=== PATIENT | male | born 1950 | race Caucasian/White ===

== ENCOUNTER 2020-12-28 09:11 | Emergency (ER) | payer MEDICARE, OTHER ==
--- OUTSIDE RECORDS SUMMARY | 2020-12-28 09:16 | XMS REPORT | Continuity of Care Document ---
:1950 Author Organization [facility] t Address [address] [place] [address] Care Team Providers Name Role Phone Bonita Reyes Attending Clinician Doctor Unassigned, Name Attending Clinician Unavailable Problems This patient has no known problems. Allergies, Adverse Reactions, Alerts This patient has no known allergies or adverse reactions. Medications This patient has no known medications. Procedures This patient has no known procedures. Encounters Start End Encounter Admission Attending Care Care Encounter Source Date/Time Date/Time Type Type Clinicians Facility Department ID 2020-05-08 2020-05-08 Office WILDA Castillo [id number] 15:31:11 15:46:11 Visit [facility] [id number] Surgical [id number] Specialti [id number] [place] 2020-05-03 2020-05-03 Orders Doctor LLAMAS [id number] 00:00:00 00:00:00 Only UnassignedADELINA [id number] [place] [facility] [id number] Results This patient has no known results.
[2020-12-28] MEDS ORDERED: MORPHINE 4 MG/ML SYR ONE (10:35)
[2020-12-28] MEDS ORDERED: dexAMETHasone 10 MG/ML VIAL ONE (10:35)
--- NOTE | 2020-12-28 10:59 | RAD REPORT ---
EXAM DESCRIPTION: CTSpine Lumbar Wo Con12/28/2020 10:37 am CLINICAL HISTORY: Back pain and radiculopathy COMPARISON: None TECHNIQUE: Computed axial tomography lumbar spine was obtained with coronal and sagittal reconstruct ion. All CT scans are performed using dose optimization technique as appropriate and may include automated exposure control or mA/KV adjustment according to patient size. FINDINGS: No fracture is seen. No dislocation is noted. Disc bulge L2-3 narrows the thecal sac to 9 millimeters Disc bulge L3-4 in combination with ligamentum flavum and facet hypertrophy narrow the thecal sac a 5 .5 millimeters. Mild narrowing of the neural foramina bilaterally Disc bulge L4-5 in combination with ligamentum flavum and facet hypertrophy narrow the thecal sac to 3 millimeters. Marked narrowing of the neural foramina bilaterally. Small right lateral disc herniati on Disc bulge L5-S1 abuts the left S1 nerve root. Facet hypertrophy is present. 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
--- NOTE | 2020-12-28 11:07 | RAD REPORT ---
EXAM DESCRIPTION: CTThoracic Spine W/o Cont12/28/2020 10:37 am CLINICAL HISTORY: Back pain and radiculopathy COMPARISON: None TECHNIQUE: Computed axial tomography of thoracic spine was obtained with coronal and sagittal recons truction. All CT scans are performed using dose optimization technique as appropriate and may include automated exposure control or mA/KV adjustment according to patient size. FINDINGS: No fracture is seen. No dislocation is noted. Moderate central subligamentous disc herniation suspected T4-5 IMPRESSION: Negative for a thoracic fracture Moderate central subligamentous disc herniation suspected T4-5. If clinically indicated further evalu ation with MRI may helpful
--- NOTE | 2020-12-28 11:31 | ER ---
Nurse's Notes [facility] Name: Dakotah Shah Age: 70 yrs Sex: Male : 1950 Arrival Date: 12/28/2020 Time: 09:13 Bed 27 Private MD: Vadim Fernandes Diagnosis: Dorsalgia-chronic Presentation: 12/28 09:45 Chief complaint: Patient states: chronic mid back pain that got worse 2-3 days ago. aa5 When asked about any recent injury, pt states "I've been just working around the house". Coronavirus screen: Client denies travel out of the [place] in the last 14 days. At this time, the client does not indicate any symptoms associated with coronavirus-19. Ebola Screen: Patient negative for fever greater than or equal to 101.5 degrees Fahrenheit, and additional compatible Ebola Virus Disease symptoms. Initial Sepsis Screen: Does the patient meet any 2 criteria? No. Patient's initial sepsis screen is negative. Does the patient have a suspected source of infection? No. Patient's initial sepsis screen is negative. Risk Assessment: Do you want to hurt yourself or someone else? Patient reports no desire to harm self or others. Onset of symptoms was December 2020. 09:45 Acuity: CHRISTOPHER 4 aa5 09:45 Method Of Arrival: Ambulatory aa5 Historical: - Allergies: 09:49 No Known Allergies; aa5 - PMHx: 09:49 Gout; Hypertension; Diabetes - NIDDM; Thyroid problem; chronic back pain; seasonal aa5 allergies; - Immunization history:: Adult Immunizations unknown. - Social history:: Smoking status: Patient denies any tobacco usage or history of. Screenin:22 Abuse screen: Denies threats or abuse. Denies injuries from another. Nutritional ss screening: No deficits noted. Tuberculosis screening: No symptoms or risk factors identified. Fall Risk No fall in past 12 months (0 pts). Secondary diagnosis (15 points) impaired mobility, No IV (0 pts). Ambulatory Aid- None/Bed Rest/Nurse Assist (0 pts). Gait- Normal/Bed Rest/Wheelchair (0 pts) Mental Status- Oriented to own ability (0 pts). Assessment: 09:50 General: Appears uncomfortable, Behavior is calm, cooperative. Pain: Complains of pain aa5 in thoracic area Pain currently is 10 out of 10 on a pain scale. Quality of pain is described as sharp, shooting, Is continuous, Aggravated by increased activity, repositioning. Neuro: Level of Consciousness is awake, alert, obeys commands, Oriented to person, place, time, situation. Cardiovascular: Patient's skin is warm and dry. Respiratory: Airway is patent Respiratory effort is even, unlabored, Respiratory pattern is regular, symmetrical. GI: Abdomen is round. : No signs and/or symptoms were reported regarding the genitourinary system. EENT: No signs and/or symptoms were reported regarding the EENT system. Derm: Skin is pink, warm \\T\\ dry. Musculoskeletal: Range of motion: intact in all extremities. 12:00 Reassessment: Patient is alert, oriented x 3, equal unlabored respirations, skin aa5 warm/dry/pink. Patient states symptoms have not improved. PA notified . 13:22 Reassessment: Patient appears in no apparent distress at this time. Patient states ss feeling better. Patient states symptoms have improved. Vital Signs: 09:46 BP 133 / 89; Pulse 58; Resp 16 S; Temp 98.3(O); Pulse Ox 97% on R/A; Weight 113.4 kg aa5 (R); Height 5 ft. 9 in. (175.26 cm) (R); Pain 10/10; 12:20 BP 138 / 85; Pulse 62; Resp 18 S; Pulse Ox 98% on R/A; aa5 09:46 Body Mass Index 36.92 (113.40 kg, 175.26 cm) aa5 ED Course: 09:13 Patient arrived in ED. ag5 09:13 Vadim Fernandes MD is Private Physician. ag5 09:45 Arm band placed on. aa5 09:46 Triage completed. aa5 09:49 Meeta Doss, JAREN is Primary Nurse. aa5 09:51 Demond Singleton PA is PHCP. cp 09:51 John Majano MD is Attending Physician. cp 10:37 CT Thoracic Spine Wo Cont In Process Unspecified. EDMS 10:38 CT Lumbar Spine Wo Con In Process Unspecified. EDMS 13:22 Patient has correct armband on for positive identification. Bed in low position. Call ss light in reach. 13:22 No provider procedures requiring assistance completed. Patient did not have IV access ss during this emergency room visit. Administered Medications: 10:25 Drug: morphine 4 mg Route: IM; Site: left deltoid; iw 13:24 Follow up: Response: No adverse reaction; Pain is decreased ss 10:25 Drug: Decadron 10 mg Route: IM; Site: right deltoid; iw 13:24 Follow up: Response: No adverse reaction ss 12:20 Drug: Dilaudid 0.5 mg Route: IM; Site: right deltoid; aa5 13:24 Follow up: Response: No adverse reaction; Pain is decreased ss Outcome: 11:31 Discharge ordered by MD. cp 13:22 Discharged to home via wheelchair, with family. ss 13:22 Condition: good 13:22 Discharge instructions given to patient, Instructed on discharge instructions, follow up and referral plans. Demonstrated understanding of instructions, follow-up care, Prescriptions given X 4. 13:23 Patient left the ED. ss Signatures: Dispatcher [employer] EDYu Carter RN RN iw Meeta Doss RN RN aa5 Swathi Garcia RN RN Demond Singleton, BUDDY PA Saira Barnett ag5 Corrections: (The following items were deleted from the chart) 18:58 13:00 BP 138 / 85; Pulse 62bpm; Resp 18bpm; Spontaneous; Pulse Ox 98% RA; aa5 aa5
--- NOTE | 2020-12-28 11:31 | EDPHYS ---
Physician Documentation [facility] Name: Dakotah Shah Age: 70 yrs Sex: Male : 1950 Arrival Date: 12/28/2020 Time: 09:13 Bed 27 Private MD: Vadim Fernandes ED Physician John Majano HPI: 12/28 10:20 This 70 yrs old Male presents to ER via Ambulatory with complaints of Back cp Pain. 10:20 The patient presents with pain that is chronic, with no known mechanism of injury. The cp symptoms are located in the thoracic area and lumbar area. 10:20 Onset: The symptoms/episode began/occurred chronically, pain became worse over past 2-3 cp days. Patient denies injury. 10:20 Associated signs and symptoms: Pertinent negatives: abdominal pain, chest pain, cp constipation, fever, incontinence, numbness, tingling, urinary retention, weakness. Patient reports history of bulging disc in thoracic spine. Has been seen by Neurosurgery in the past. Patient reports surgery was not recommended. Historical: - Allergies: 09:49 No Known Allergies; aa5 - PMHx: 09:49 Gout; Hypertension; Diabetes - NIDDM; Thyroid problem; chronic back pain; seasonal aa5 allergies; - Immunization history:: Adult Immunizations unknown. - Social history:: Smoking status: Patient denies any tobacco usage or history of. ROS: 10:30 Constitutional: Negative for body aches, chills, fever, poor PO intake. cp 10:30 Cardiovascular: Negative for chest pain, edema, palpitations. cp 10:30 Respiratory: Negative for cough, shortness of breath, wheezing. 10:30 Abdomen/GI: Negative for abdominal pain, nausea, vomiting, and diarrhea, constipation, bowel incontinence. 10:30 Back: Positive for pain at rest, pain with movement, of the thoracic area and lumbar area. 10:30 : Negative for urinary symptoms, bladder incontinence, testicular pain 10:30 Neuro: Negative for altered mental status, headache, numbness, weakness. 10:30 All other systems are negative. Exam: 10:35 Constitutional: The patient appears in no acute distress, alert, awake, cp non-diaphoretic, non-toxic, well developed, well nourished, uncomfortable. 10:35 Head/Face: Normocephalic, atraumatic. cp 10:35 Eyes: Periorbital structures: appear normal, Conjunctiva: normal, no exudate, no injection, Sclera: no appreciated abnormality, Lids and lashes: appear normal, bilaterally. 10:35 ENT: External ear(s): are unremarkable, Nose: is normal, Posterior pharynx: Airway: no evidence of obstruction, patent. 10:35 Neck: C-spine: vertebral tenderness, is not appreciated, crepitus, is not appreciated, ROM/movement: is normal, is supple, without pain, no range of motions limitations. 10:35 Chest/axilla: Inspection: normal. 10:35 Cardiovascular: Rate: bradycardic, Rhythm: regular, Edema: is not appreciated. 10:35 Respiratory: the patient does not display signs of respiratory distress, Respirations: normal, no use of accessory muscles, no retractions, labored breathing, is not present, Breath sounds: are clear throughout. 10:35 Abdomen/GI: Inspection: abdomen appears normal, Palpation: abdomen is soft and non-tender, in all quadrants. 10:35 Back: pain, that is severe, of the thoracic area and lumbar area, ROM is painful, with all movement, vertebral tenderness, is appreciated at T10 and T11, Straight leg raises: of both lower extremities does not illicit pain. 10:35 Skin: no rash present. 10:35 Neuro: Motor: moves all fours, strength is normal, Sensation: is normal, Deep tendon reflexes are 2+ (normal) in the right patellar, right Achilles, left patellar and left Achilles. Vital Signs: 09:46 BP 133 / 89; Pulse 58; Resp 16 S; Temp 98.3(O); Pulse Ox 97% on R/A; Weight 113.4 kg aa5 (R); Height 5 ft. 9 in. (175.26 cm) (R); Pain 10/10; 12:20 BP 138 / 85; Pulse 62; Resp 18 S; Pulse Ox 98% on R/A; aa5 09:46 Body Mass Index 36.92 (113.40 kg, 175.26 cm) aa5 MDM: 10:02 Patient medically screened. cp 11:00 Differential diagnosis: chronic back pain, ruptured disc, Ureterolithiasis vertebral cp fracture, spinal stenosis, cauda equina. 11:30 Data reviewed: vital signs, nurses notes, radiologic studies, CT scan. 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 Response to treatment: the patient's symptoms have mildly improved after treatment, and as a result, I will discharge patient. ED course: VSS. Pain improved with meds. Will discharge to home for continued monitoring. 12/28 10:13 Order name: Urine Microscopic Only cp 12/28 12:15 Order name: Urine Dipstick--Ancillary (enter results) em1 12/28 10:13 Order name: CT Thoracic Spine Wo Cont; Complete Time: 11:15 cp 12/28 10:13 Order name: CT Lumbar Spine Wo Con; Complete Time: 11:15 cp 12/28 10:13 Order name: Urine Dipstick-Ancillary (obtain specimen); Complete Time: 12:14 cp Administered Medications: 10:25 Drug: morphine 4 mg Route: IM; Site: left deltoid; iw 13:24 Follow up: Response: No adverse reaction; Pain is decreased ss 10:25 Drug: Decadron 10 mg Route: IM; Site: right deltoid; iw 13:24 Follow up: Response: No adverse reaction ss 12:20 Drug: Dilaudid 0.5 mg Route: IM; Site: right deltoid; aa5 13:24 Follow up: Response: No adverse reaction; Pain is decreased ss Disposition: 12:00 Chart complete. cp 12/29 07:03 Co-signature as Attending Physician, John Majano MD I agree with the assessment and kdr plan of care. Disposition: 12/28/20 11:31 Discharged to Home. Impression: Dorsalgia - chronic. - Condition is Stable. - Discharge Instructions: Back Pain, Adult. - Prescriptions for Lidoderm 5 % Topical adhesive patch,medicated - apply 1 patch by TRANSDERMAL route once daily; 1 box. Cyclobenzaprine 10 mg Oral Tablet - take 1 tablet by ORAL route every 8 hours As needed; 20 tablet. Tramadol 50 mg Oral Tablet - take 1 tablet by ORAL route every 8 hours as needed; 12 tablet. Medrol (Gregorio) 4 mg Oral Tablets, Dose Pack - take 1 tablet by ORAL route as directed - follow package instructions; 1 packet. - Medication Reconciliation Form, Thank You Letter, Antibiotic Education, Prescription Opioid Use form. - Follow up: Private Physician; When: 1 - 2 days; Reason: Recheck today's complaints. - Problem is an acute exacerbation. - Symptoms have improved. Signatures: Dispatcher [employer] EDMS John Majano MD MD [facility] Yu Milton RN RN Meeta Doss RN RN aa5 Swathi Garcia RN RN ss Demond Singleton PA PA cp Corrections: (The following items were deleted from the chart) 12/28 13:23 11:31 12/28/2020 11:31 Discharged to Home. Impression: Dorsalgia - chronic. Condition ss is Stable. Forms are Medication Reconciliation Form, Thank You Letter, Antibiotic Education, Prescription Opioid Use. Follow up: Private Physician; When: 1 - 2 days; Reason: Recheck today's complaints. Problem is an acute exacerbation. Symptoms have improved. cp
[2020-12-28 12:26] LABS: Urine Blood NEGATIVE (NEG); Urine Glucose NEGATIVE (NEG); Urine Protein NEGATIVE (NEG); Urine Specific Gravity 1.025 (1.005-1.030); Urine pH 5.5 (5.0-7.0)
[2020-12-28 12:33] LABS: Urine Bacteria <20 /HPF (NONE SEEN); Urine RBC <5 /HPF (NONE SEEN)
[2020-12-28] MEDS ORDERED: HYDROMORPHONE HCL 0.5 MG/0.5 ML INJ ONE (12:40)
[2020-12-28 13:47] VITALS: BP 133/89; TEMP 98.3; O2SAT 97
== END 2020-12-28 13:23 | disposition home or self-care (01) ==
LOC: ER 09:11
DX: M54.6 Pain in thoracic spine (principal); M54.5 Low back pain; G89.29 Other chronic pain; M10.9 Gout, unspecified; I10 Essential (primary) hypertension; E11.9 Type 2 diabetes mellitus without complications
CPT/HCPCS: 72131; 72128; 96372; 99283; J1100; J1170; 81003; 81015

== ENCOUNTER 2021-10-15 14:42 | Emergency (ER) | payer OTHER ==
--- OUTSIDE RECORDS SUMMARY | 2021-10-15 14:48 | XMS REPORT | Continuity of Care Document ---
:1950 Author Organization [facility] t Address [address] [place] [address] Care Team Providers Name Role Phone Jonathan LOUISE S Attending Clinician Bonita CASTILLO Attending Clinician Unavailable Aileen HERNANDEZ Attending Clinician Unavailable Doctor Unassigned, Name Attending Clinician Unavailable Danni WEBER, L Attending Clinician Station, Heart Attending Clinician Unavailable 1, Lab Attending Clinician Unavailable Payers Payer Name Policy Type Policy Number Effective Date Expiration Date Bonita HAND PLS [id number] 2020 00:00:00 [facility] [id number] 2015 00:00:00 Problems Condition Condition Condition Status Onset Resolution Last Treating Co mments Source Name Details Category Date Date Treatment Clinician Date Total knee Total knee Disease Active U nivers replacemen replacemen 08-30 it y of t status t status 00:00: [place] [facility] Atrial Atrial Disease Active Univers fibrillati fibrillati 08-30 it y of on on 00:: [place] [facility] Hypertensi Hypertensi Disease Active U nivers on on 08-30 ity of 00:00: [address] 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 Added automatic ally from request for surgery [id number] Right knee Right knee Disease Active U nivers pain pain 3-16 ity of 00:00: [place] 00 Medical Branch Left hip Left hip Disease Active Unive rs pain pain 2-18 ity of 00:00: [place] [facility] Right Right Disease Active 2014-12 Univers shoulder shoulder 1-25 ity of pain pain 00:00: [place] [facility] Allergies, Adverse Reactions, Alerts Allergy Allergy Status Severity Reaction(s) Onset Inactive Treating Comm ents Source Name Type Date Date Clinician NO KNOWN Drug Active Univers ALLERGIE Class ity of S [facility] Social History Social Habit Start Date Stop Date Quantity Comments Source Exposure to Not sure [facility] SARS-CoV-2 [facility] (event) Branch Alcohol intake 2021-04-09 2021-04-09 Current [facility] 00:00:00 00:00:00 non-drinker of [facility] alcohol Branch (finding) Tobacco use and 2021-04-09 2021-04-09 Never used Universit y of exposure 00:00:00 00:00:00 [facility] Sex Ass[birth year] Universit y of 00:00:00 00:00:00 [facility] Smoking Status Start Date Stop Date Source Never smoker [facility] Medications Ordered Filled Start Stop Current Ordering Indication Dosage Frequency Signature Comments Components Source Medication Medication Date Date Medication? Clinician (SIG) Name Name zolpidem Yes 12.5mg Take 12.5 [facility] [place] (AMBIEN CR) 5-10 mg by ity of 12.5 mg CR 18:32: mouth at [facility] as tablet 37 bedtime. Medical Branch allopurinol Yes 300mg Take 300 U nivers (ZYLOPRIM) 5-10 mg by ity of 300 mg 18:32: mouth [place] tablet 37 daily. Medical Branch sotalol Yes 80mg Take 80 mg Univ ers (SOTALOL 5-10 by mouth ity of AF) 80 mg 18:32: daily. [place] tablet 37 Medical Branch gabapentin Yes 800mg Take 800 [facility] [place] (NEURONTIN) 5-10 mg by ity of 800 mg 18:32: mouth 4 [place] tablet 37 (four) Medical times Branch daily. aspirin 81 Yes 81mg Take 81 mg U nivers mg EC 5-10 by mouth ity of tablet 18:32: daily. [address] Branch Liraglutide Yes 1.2mg inject 1.2 Univers (VICTOZA 5-10 mg under ity of 2-AYALA) 0.6 18:32: the skin [place] mg/0.1 mL 37 daily. Medical (18 mg/3 Branch mL) PnIj multivitami Yes 1{tbl} Take 1 [place] n, 5-10 tablet by ity of tx-minerals 18:32: mouth [place] (COMPLETE 37 daily. Medical MULTIVITAMI Branch N) tablet tacrine HCl Yes 1{tbl} Take 1 [facility] [place] (COGNEX 5-10 tablet by ity of ORAL) 18:32: mouth [place] 37 daily. Medical Branch zolpidem Yes 12.5mg Take 12.5 [facility] [place] (AMBIEN CR) 5-10 mg by ity of 12.5 mg CR 18:32: mouth at [place] tablet 37 bedtime. Medical Branch allopurinol Yes 300mg Take 300 U nivers (ZYLOPRIM) 5-10 mg by ity of 300 mg 18:32: mouth [place] tablet 37 daily. Medical Branch sotalol Yes 80mg Take 80 mg Univ ers (SOTALOL 5-10 by mouth ity of AF) 80 mg 18:32: daily. [facility] 37 Medical Branch gabapentin Yes 800mg Take 800 [facility] [place] (NEURONTIN) 5-10 mg by ity of 800 mg 18:32: mouth 4 [place] tablet 37 (four) Medical times Branch daily. aspirin 81 Yes 81mg Take 81 mg U nivers mg EC 5-10 by mouth ity of tablet 18:32: daily. [address] Branch Liraglutide Yes 1.2mg inject 1.2 Univers (VICTOZA 5-10 mg under ity of 2-AYALA) 0.6 18:32: the skin [place] mg/0.1 mL 37 daily. Medical (18 mg/3 Branch mL) PnIj multivitami Yes 1{tbl} Take 1 [place] n, 5-10 tablet by ity of tx-minerals 18:32: mouth [place] (COMPLETE 37 daily. Medical MULTIVITAMI Branch N) tablet tacrine HCl Yes 1{tbl} Take 1 [facility] [place] (COGNEX 5-10 tablet by ity of ORAL) 18:32: mouth [place] 37 daily. Medical Branch zolpidem Yes 12.5mg Take 12.5 [facility] [place] (AMBIEN CR) 5-10 mg by ity of 12.5 mg CR 18:32: mouth at [place] tablet 37 bedtime. Medical Branch allopurinol Yes 300mg Take 300 U nivers (ZYLOPRIM) 5-10 mg by ity of 300 mg 18:32: mouth [place] tablet 37 daily. Medical Branch sotalol Yes 80mg Take 80 mg Univ ers (SOTALOL 5-10 by mouth ity of AF) 80 mg 18:32: daily. [place] tablet 37 Medical Branch gabapentin Yes 800mg Take 800 [facility] [place] (NEURONTIN) 5-10 mg by ity of 800 mg 18:32: mouth 4 [place] tablet 37 (four) Medical times Branch daily. aspirin 81 Yes 81mg Take 81 mg U nivers mg EC 5-10 by mouth ity of tablet 18:32: daily. [place] 37 Medical Branch Liraglutide Yes 1.2mg inject 1.2 Univers (VICTOZA 5-10 mg under ity of 2-AYALA) 0.6 18:32: the skin [place] as mg/0.1 mL 37 daily. Medical (18 mg/3 Branch mL) PnIj multivitami Yes 1{tbl} Take 1 [place] n, 5-10 tablet by ity of tx-minerals 18:32: mouth [place] (COMPLETE 37 daily. Medical MULTIVITAMI Branch N) tablet tacrine HCl Yes 1{tbl} Take 1 [facility] [place] (COGNEX 5-10 tablet by ity of ORAL) 18:32: mouth [place] 37 daily. Medical Branch zolpidem Yes 12.5mg Take 12.5 [facility] [place] (AMBIEN CR) 5-10 mg by ity of 12.5 mg CR 18:32: mouth at [place] tablet 37 bedtime. Medical Branch allopurinol Yes 300mg Take 300 U nivers (ZYLOPRIM) 5-10 mg by ity of 300 mg 18:32: mouth [place] tablet 37 daily. Medical Branch sotalol Yes 80mg Take 80 mg Univ ers (SOTALOL 5-10 by mouth ity of AF) 80 mg 18:32: daily. [place] tablet 37 Medical Branch gabapentin Yes 800mg Take 800 [facility] [place] (NEURONTIN) 5-10 mg by ity of 800 mg 18:32: mouth 4 [place] tablet 37 (four) Medical times Branch daily. aspirin 81 Yes 81mg Take 81 mg U nivers mg EC 5-10 by mouth ity of tablet 18:32: daily. [place] 37 Medical Branch Liraglutide Yes 1.2mg inject 1.2 Univers (VICTOZA 5-10 mg under ity of 2-AYALA) 0.6 18:32: the skin [place] as mg/0.1 mL 37 daily. Medical (18 mg/3 Branch mL) PnIj multivitami Yes 1{tbl} Take 1 [place] n, 5-10 tablet by ity of tx-minerals 18:32: mouth [place] (COMPLETE 37 daily. Medical MULTIVITAMI Branch N) tablet tacrine HCl Yes 1{tbl} Take 1 [facility] [place] (COGNEX 5-10 tablet by ity of ORAL) 18:32: mouth [place] 37 daily. Medical Branch methylPREDN 2020-0 Yes [id number] 84mg Take 21 Univers ISolone 6-08 9102 tablets by ity of (MEDROL, 00:00: mouth [place] AYALA,) 4 mg 00 SEE-INSTRU Med ical tablets CTIONS. Branch follow package directions methylPREDN 2020-0 Yes [id number] 84mg Take 21 Univers ISolone 6-08 9102 tablets by ity of (MEDROL, 00:00: mouth [place] AYALA,) 4 mg 00 SEE-INSTRU Med ical tablets CTIONS. Branch follow package directions methylPREDN 2020-0 Yes [id number] 84mg Take 21 Univers ISolone 6-08 9102 tablets by ity of (MEDROL, 00:00: mouth [place] AYALA,) 4 mg 00 SEE-INSTRU Med ical tablets CTIONS. Branch follow package directions methylPREDN 2020-0 Yes [id number] 84mg Take 21 Univers ISolone 6-08 9102 tablets by ity of (MEDROL, 00:00: mouth [place] AYALA,) 4 mg 00 SEE-INSTRU Med ical tablets CTIONS. Branch follow package directions methylPREDN 2020-0 Yes [id number] 84mg Take 21 Univers ISolone 6-08 9102 tablets by ity of (MEDROL, 00:00: mouth [place] AYALA,) 4 mg 00 SEE-INSTRU Med ical tablets CTIONS. Branch follow package directions methylPREDN 2020-0 Yes [id number] 84mg Take 21 Univers ISolone 6-08 9102 tablets by ity of (MEDROL, 00:00: mouth [place] AYALA,) 4 mg 00 SEE-INSTRU Med ical tablets CTIONS. Branch follow package directions diclofenac 2020-0 2020- No [id number] 75mg Take 1 Univers 75 mg EC -07 07- 9102 tablet by ity o f tablet 00:00: 04:59 mouth 2 [place] 00 :00 (two) Medical times Branch daily with meals for 30 days. diclofenac 2020-0 2020- No [id number] 75mg Take 1 Univers 75 mg EC 05-08- 9102 tablet by ity o f tablet 00:00: 04:59 mouth 2 [place] 00 :00 (two) Medical times Branch daily with meals for 30 days. methylPREDN 2020-0 Yes [id number] 84mg Take 21 Univers ISolone 1-07 05 tablets by ity of (MEDROL, 00:00: mouth [place] AYALA,) 4 mg 00 SEE-INSTRU Med ical tablets CTIONS. Branch follow package directions methylPREDN 2020-0 Yes [id number] 84mg Take 21 Univers ISolone 1-07 05 tablets by ity of (MEDROL, 00:00: mouth [place] AYALA,) 4 mg 00 SEE-INSTRU Med ical tablets CTIONS. Branch follow package directions methylPREDN 2020-0 Yes [id number] 84mg Take 21 Univers ISolone 1-07 05 tablets by ity of (MEDROL, 00:00: mouth [place] AYALA,) 4 mg 00 SEE-INSTRU Med ical tablets CTIONS. Branch follow package directions methylPREDN 2020-0 Yes [id number] 84mg Take 21 Univers ISolone 1-07 05 tablets by ity of (MEDROL, 00:00: mouth [place] AYALA,) 4 mg 00 SEE-INSTRU Med ical tablets CTIONS. Branch follow package directions methylPREDN 2020-0 Yes [id number] 84mg Take 21 Univers ISolone 1-07 05 tablets by ity of (MEDROL, 00:00: mouth [place] AYALA,) 4 mg 00 SEE-INSTRU Med ical tablets CTIONS. Branch follow package directions methylPREDN 2020-0 Yes [id number] 84mg Take 21 Univers ISolone 1-07 05 tablets by ity of (MEDROL, 00:00: mouth [place] AYALA,) 4 mg 00 SEE-INSTRU Med ical tablets CTIONS. Branch follow package directions methylPREDN 2020-0 Yes [id number] 84mg Take 21 Univers ISolone 1-07 05 tablets by ity of (MEDROL, 00:00: mouth [place] AYALA,) 4 mg 00 SEE-INSTRU Med ical tablets CTIONS. Branch follow package directions methylPREDN 2020-0 Yes [id number] 84mg Take 21 Univers ISolone 1-07 05 tablets by ity of (MEDROL, 00:00: mouth [place] AYALA,) 4 mg 00 SEE-INSTRU Med ical tablets CTIONS. Branch follow package directions methylPREDN 2020-0 Yes [id number] 84mg Take 21 Univers ISolone 1-07 05 tablets by ity of (MEDROL, 00:00: mouth [place] AYALA,) 4 mg 00 SEE-INSTRU Med ical tablets CTIONS. Branch follow package directions methylPREDN 2020-0 Yes [id number] 84mg Take 21 Univers ISolone 1-07 05 tablets by ity of (MEDROL, 00:00: mouth [place] AYALA,) 4 mg 00 SEE-INSTRU Med ical tablets CTIONS. Branch follow package directions methylPREDN 2020-0 Yes [id number] 84mg Take 21 Univers ISolone 1-07 05 tablets by ity of (MEDROL, 00:00: mouth [place] AYALA,) 4 mg 00 SEE-INSTRU Med ical tablets CTIONS. Branch follow package directions methylPREDN 2020-0 Yes [id number] 84mg Take 21 Univers ISolone 1-07 05 tablets by ity of (MEDROL, 00:00: mouth [place] AYALA,) 4 mg 00 SEE-INSTRU Med ical tablets CTIONS. Branch follow package directions methylPREDN Yes [id number] 84mg Take 21 Univers ISolone 1-07 05 tablets by ity of (MEDROL, 00:00: mouth [place] AYALA,) 4 mg 00 SEE-INSTRU Med ical tablets CTIONS. Branch follow package directions pentazocine 2018-12 Yes [id number] 1{tbl} Take 1 Univers -naloxone 0-22 05 tablet by ity o f 50-0.5 mg 00:00: mouth [place] tablet 00 every 4 Medical (four) Branch hours as needed for Pain. pentazocine 2018-12 Yes [id number] 1{tbl} Take 1 Univers -naloxone 0-22 05 tablet by ity o f 50-0.5 mg 00:00: mouth [place] tablet 00 every 4 Medical (four) Branch hours as needed for Pain. pentazocine 2018-12 Yes [id number] 1{tbl} Take 1 Univers -naloxone 0-22 05 tablet by ity o f 50-0.5 mg 00:00: mouth [place] tablet 00 every 4 Medical (four) Branch hours as needed for Pain. pentazocine 2018-12 Yes [id number] 1{tbl} Take 1 Univers -naloxone 0-22 05 tablet by ity o f 50-0.5 mg 00:00: mouth [place] tablet 00 every 4 Medical (four) Branch hours as needed for Pain. pentazocine 2018-12 Yes [id number] 1{tbl} Take 1 Univers -naloxone 0-22 05 tablet by ity o f 50-0.5 mg 00:00: mouth [place] tablet 00 every 4 Medical (four) Branch hours as needed for Pain. pentazocine 2018-12 Yes [id number] 1{tbl} Take 1 Univers -naloxone 0-22 05 tablet by ity o f 50-0.5 mg 00:00: mouth [place] tablet 00 every 4 Medical (four) Branch hours as needed for Pain. pentazocine 2018-12 Yes [id number] 1{tbl} Take 1 Univers -naloxone 0-22 05 tablet by ity o f 50-0.5 mg 00:00: mouth [place] tablet 00 every 4 Medical (four) Branch hours as needed for Pain. pentazocine 2018-12 Yes [id number] 1{tbl} Take 1 Univers -naloxone 0-22 05 tablet by ity o f 50-0.5 mg 00:00: mouth [place] tablet 00 every 4 Medical (four) Branch hours as needed for Pain. pentazocine 2018-12 Yes [id number] 1{tbl} Take 1 Univers -naloxone 0-22 05 tablet by ity o f 50-0.5 mg 00:00: mouth [place] tablet 00 every 4 Medical (four) Branch hours as needed for Pain. pentazocine 2018-12 Yes [id number] 1{tbl} Take 1 Univers -naloxone 0-22 05 tablet by ity o f 50-0.5 mg 00:00: mouth [place] tablet 00 every 4 Medical (four) Branch hours as needed for Pain. pentazocine 2018-12 Yes [id number] 1{tbl} Take 1 Univers -naloxone 0-22 05 tablet by ity o f 50-0.5 mg 00:00: mouth [place] tablet 00 every 4 Medical (four) Branch hours as needed for Pain. pentazocine 2018-12 Yes [id number] 1{tbl} Take 1 Univers -naloxone 0-22 05 tablet by ity o f 50-0.5 mg 00:00: mouth [place] tablet 00 every 4 Medical (four) Branch hours as needed for Pain. pentazocine 2018-12 Yes [id number] 1{tbl} Take 1 Univers -naloxone 0-22 05 tablet by ity o f 50-0.5 mg 00:00: mouth [place] tablet 00 every 4 Medical (four) Branch hours as needed for Pain. pentazocine 2018-12 Yes [id number] 1{tbl} Take 1 Univers -naloxone 0-22 05 tablet by ity o f 50-0.5 mg 00:00: mouth [place] tablet 00 every 4 Medical (four) Branch hours as needed for Pain. traMADol 50 2018-12 Yes 1-2 by Univ ers mg tablet 0-14 mouth ity of 00:00: every 4-6 [place] 00 hours as Medical needed prn Branch pain traMADol 50 2018-12 Yes 1-2 by Univ ers mg tablet 0-14 mouth ity of 00:00: every 4-6 [place] 00 hours as Medical needed prn Branch pain traMADol 50 2018-12 Yes 1-2 by Univ ers mg tablet 0-14 mouth ity of 00:00: every 4-6 [place] 00 hours as Medical needed prn Branch pain traMADol 50 2018- Yes 1-2 by Univ ers mg tablet 0-14 mouth ity of 00:00: every 4-6 [place] 00 hours as Medical needed prn Branch pain traMADol 50 2018- Yes 1-2 by Univ ers mg tablet 0-14 mouth ity of 00:00: every 4-6 [place] 00 hours as Medical needed prn Branch pain traMADol 50 2018- Yes 1-2 by Univ ers mg tablet 0-14 mouth ity of 00:00: every 4-6 [place] 00 hours as Medical needed prn Branch pain traMADol 50 2018- Yes 1-2 by Univ ers mg tablet 0-14 mouth ity of 00:00: every 4-6 [place] 00 hours as Medical needed prn Branch pain traMADol 50 2018- Yes 1-2 by Univ ers mg tablet 0-14 mouth ity of 00:00: every 4-6 [place] 00 hours as Medical needed prn Branch pain traMADol 50 2018- Yes 1-2 by Univ ers mg tablet 0-14 mouth ity of 00:00: every 4-6 [place] 00 hours as Medical needed prn Branch pain traMADol 50 2018-12 Yes 1-2 by Univ ers mg tablet 0-14 mouth ity of 00:00: every 4-6 [place] 00 hours as Medical needed prn Branch pain traMADol 50 2018- Yes 1-2 by Univ ers mg tablet 0-14 mouth ity of 00:00: every 4-6 [place] 00 hours as Medical needed prn Branch pain traMADol 50 2018- Yes 1-2 by Univ ers mg tablet 0-14 mouth ity of 00:00: every 4-6 [place] 00 hours as Medical needed prn Branch pain traMADol 50 2018- Yes 1-2 by Univ ers mg tablet 0-14 mouth ity of 00:00: every 4-6 [place] 00 hours as Medical needed prn Branch pain traMADol 50 2018- Yes 1-2 by Univ ers mg tablet 0-14 mouth ity of 00:00: every 4-6 [place] 00 hours as Medical needed prn Branch pain zolpidem 2018- Yes 12.5mg Take 12.5 [facility] [place] (AMBIEN CR) 0-01 mg by ity of 12.5 mg CR 20:47: mouth at [place] as tablet 05 bedtime. Medical Branch allopurinol 2018-12 Yes 300mg Take 300 U nivers (ZYLOPRIM) 0-01 mg by ity of 300 mg 20:47: mouth [place] tablet 05 daily. Medical Branch sotalol 2018-12 Yes 80mg Take 80 mg Univ ers (SOTALOL 0-01 by mouth ity of AF) 80 mg 20:47: daily. [place] tablet 05 Medical Branch gabapentin 2018-12 Yes 800mg Take 800 [place] (NEURONTIN) 0-01 mg by ity of 800 mg 20:47: mouth 4 [place] tablet 05 (four) Medical times Branch daily. aspirin 81 2018-12 Yes 81mg Take 81 mg U nivers mg EC 0-01 by mouth ity of tablet 20:47: daily. Medical Branch Liraglutide 2018-12 Yes 1.2mg inject 1.2 Univers (VICTOZA 0-01 mg under ity of 2-AYALA) 0.6 20:47: the skin [place] as mg/0.1 mL 05 daily. Medical (18 mg/3 Branch mL) PnIj multivitami 2018-12 Yes 1{tbl} Take 1 [place] n, 0-01 tablet by ity of tx-minerals 20:47: mouth [place] (COMPLETE 05 daily. Medical MULTIVITAMI Branch N) tablet tacrine HCl 2018-12 Yes 1{tbl} Take 1 [place] (COGNEX 0-01 tablet by ity of ORAL) 20:47: mouth [place] 05 daily. Medical Branch metFORMIN 2018-12 Yes 500mg Take 500 Uni vers 500 mg 0-01 mg by ity of tablet 20:47: mouth 2 [place] 05 (two) Medical times Branch daily with meals. zolpidem 2018-12 Yes 12.5mg Take 12.5 [place] (AMBIEN CR) 0-01 mg by ity of 12.5 mg CR 20:47: mouth at [place] as tablet 05 bedtime. Medical Branch allopurinol 2018-12 Yes 300mg Take 300 U nivers (ZYLOPRIM) 0-01 mg by ity of 300 mg 20:47: mouth [place] tablet 05 daily. Medical Branch sotalol 2018-12 Yes 80mg Take 80 mg Univ ers (SOTALOL 0-01 by mouth ity of AF) 80 mg 20:47: daily. [place] tablet 05 Medical Branch gabapentin 2018-12 Yes 800mg Take 800 [place] (NEURONTIN) 0-01 mg by ity of 800 mg 20:47: mouth 4 [place] tablet 05 (four) Medical times Branch daily. aspirin 81 2018-12 Yes 81mg Take 81 mg U nivers mg EC 0-01 by mouth ity of tablet 20:47: daily. Medical Branch Liraglutide 2018-12 Yes 1.2mg inject 1.2 Univers (VICTOZA 0-01 mg under ity of 2-AYALA) 0.6 20:47: the skin [place] as mg/0.1 mL 05 daily. Medical (18 mg/3 Branch mL) PnIj multivitami 2018-12 Yes 1{tbl} Take 1 [place] n, 0-01 tablet by ity of tx-minerals 20:47: mouth [place] (COMPLETE 05 daily. Medical MULTIVITAMI Branch N) tablet tacrine HCl 2018-12 Yes 1{tbl} Take 1 [place] (COGNEX 0-01 tablet by ity of ORAL) 20:47: mouth [place] 05 daily. Medical Branch metFORMIN 2018-12 Yes 500mg Take 500 Uni vers 500 mg 0-01 mg by ity of tablet 20:47: mouth 2 05 (two) Medical times Branch daily with meals. zolpidem 2018-12 Yes 12.5mg Take 12.5 [place] (AMBIEN CR) 0-01 mg by ity of 12.5 mg CR 20:47: mouth at [place] as tablet 05 bedtime. Medical Branch allopurinol 2018-12 Yes 300mg Take 300 U nivers (ZYLOPRIM) 0-01 mg by ity of 300 mg 20:47: mouth [place] tablet 05 daily. Medical Branch sotalol 2018-12 Yes 80mg Take 80 mg Univ ers (SOTALOL 0-01 by mouth ity of AF) 80 mg 20:47: daily. [place] tablet 05 Medical Branch gabapentin 2018-12 Yes 800mg Take 800 [place] (NEURONTIN) 0-01 mg by ity of 800 mg 20:47: mouth 4 [place] tablet 05 (four) Medical times Branch daily. aspirin 81 2018-12 Yes 81mg Take 81 mg U nivers mg EC 0-01 by mouth ity of tablet 20:47: daily. Medical Branch Liraglutide 2018-12 Yes 1.2mg inject 1.2 Univers (VICTOZA 0-01 mg under ity of 2-AYALA) 0.6 20:47: the skin [place] as mg/0.1 mL 05 daily. Medical (18 mg/3 Branch mL) PnIj multivitami 2018-12 Yes 1{tbl} Take 1 [place] n, 0-01 tablet by ity of tx-minerals 20:47: mouth [place] (COMPLETE 05 daily. Medical MULTIVITAMI Branch N) tablet tacrine HCl 2018-12 Yes 1{tbl} Take 1 [place] (COGNEX 0-01 tablet by ity of ORAL) 20:47: mouth [place] 05 daily. Medical Branch metFORMIN 2018-12 Yes 500mg Take 500 Uni vers 500 mg 0-01 mg by ity of tablet 20:47: mouth 2 [place] 05 (two) Medical times Branch daily with meals. zolpidem 2018-12 Yes 12.5mg Take 12.5 [place] (AMBIEN CR) 0-01 mg by ity of 12.5 mg CR 20:47: mouth at [place] as tablet 05 bedtime. Medical Branch allopurinol 2018-12 Yes 300mg Take 300 U nivers (ZYLOPRIM) 0-01 mg by ity of 300 mg 20:47: mouth [place] tablet 05 daily. Medical Branch sotalol 2018-12 Yes 80mg Take 80 mg Univ ers (SOTALOL 0-01 by mouth ity of AF) 80 mg 20:47: daily. [place] tablet 05 Medical Branch gabapentin 2018-12 Yes 800mg Take 800 [place] (NEURONTIN) 0-01 mg by ity of 800 mg 20:47: mouth 4 [place] tablet 05 (four) Medical times Branch daily. aspirin 81 2018-12 Yes 81mg Take 81 mg U nivers mg EC 0-01 by mouth ity of tablet 20:47: daily. [place] 05 Medical Branch Liraglutide 2018-12 Yes 1.2mg inject 1.2 Univers (VICTOZA 0-01 mg under ity of 2-AYALA) 0.6 20:47: the skin [place] mg/0.1 mL 05 daily. Medical (18 mg/3 Branch mL) PnIj multivitami 2018-12 Yes 1{tbl} Take 1 [place] n, 0-01 tablet by ity of tx-minerals 20:47: mouth [place] (COMPLETE 05 daily. Medical MULTIVITAMI Branch N) tablet tacrine HCl 2018-12 Yes 1{tbl} Take 1 [place] (COGNEX 0-01 tablet by ity of ORAL) 20:47: mouth [place] 05 daily. Medical Branch metFORMIN 2018-12 Yes 500mg Take 500 Uni vers 500 mg 0-01 mg by ity of tablet 20:47: mouth 2 [place] 05 (two) Medical times Branch daily with meals. zolpidem 2018-12 Yes 12.5mg Take 12.5 [place] (AMBIEN CR) 0-01 mg by ity of 12.5 mg CR 20:47: mouth at [place] tablet 05 bedtime. Medical Branch allopurinol 2018-12 Yes 300mg Take 300 U nivers (ZYLOPRIM) 0-01 mg by ity of 300 mg 20:47: mouth [place] tablet 05 daily. Medical Branch sotalol 2018-12 Yes 80mg Take 80 mg Univ ers (SOTALOL 0-01 by mouth ity of AF) 80 mg 20:47: daily. [place] tablet 05 Medical Branch gabapentin 2018-12 Yes 800mg Take 800 [place] (NEURONTIN) 0-01 mg by ity of 800 mg 20:47: mouth 4 [place] tablet 05 (four) Medical times Branch daily. aspirin 81 2018-12 Yes 81mg Take 81 mg U nivers mg EC 0-01 by mouth ity of tablet 20:47: daily. Medical Branch Liraglutide 2018-12 Yes 1.2mg inject 1.2 Univers (VICTOZA 0-01 mg under ity of 2-AYALA) 0.6 20:47: the skin [place] mg/0.1 mL 05 daily. Medical (18 mg/3 Branch mL) PnIj multivitami 2018-12 Yes 1{tbl} Take 1 [place] n, 0-01 tablet by ity of tx-minerals 20:47: mouth [place] (COMPLETE 05 daily. Medical MULTIVITAMI Branch N) tablet tacrine HCl 2018-12 Yes 1{tbl} Take 1 [place] (COGNEX 0-01 tablet by ity of ORAL) 20:47: mouth [place] 05 daily. Medical Branch metFORMIN 2018-12 Yes 500mg Take 500 Uni vers 500 mg 0-01 mg by ity of tablet 20:47: mouth 2 [place] 05 (two) Medical times Branch daily with meals. zolpidem 2018-12 Yes 12.5mg Take 12.5 [place] (AMBIEN CR) 0-01 mg by ity of 12.5 mg CR 20:47: mouth at [place] tablet 05 bedtime. Medical Branch allopurinol 2018-12 Yes 300mg Take 300 U nivers (ZYLOPRIM) 0-01 mg by ity of 300 mg 20:47: mouth [place] tablet 05 daily. Medical Branch sotalol 2018-12 Yes 80mg Take 80 mg Univ ers (SOTALOL 0-01 by mouth ity of AF) 80 mg 20:47: daily. [place] tablet 05 Medical Branch gabapentin 2018-12 Yes 800mg Take 800 [place] (NEURONTIN) 0-01 mg by ity of 800 mg 20:47: mouth 4 [place] tablet 05 (four) Medical times Branch daily. aspirin 81 2018-12 Yes 81mg Take 81 mg U nivers mg EC 0-01 by mouth ity of tablet 20:47: daily. 05 Medical Branch Liraglutide 2018-12 Yes 1.2mg inject 1.2 Univers (VICTOZA 0-01 mg under ity of 2-AYALA) 0.6 20:47: the skin [place] mg/0.1 mL 05 daily. Medical (18 mg/3 Branch mL) PnIj multivitami 2018-12 Yes 1{tbl} Take 1 [place] n, 0-01 tablet by ity of tx-minerals 20:47: mouth [place] (COMPLETE 05 daily. Medical MULTIVITAMI Branch N) tablet tacrine HCl 2018-12 Yes 1{tbl} Take 1 [place] (COGNEX 0-01 tablet by ity of ORAL) 20:47: mouth [place] 05 daily. Medical Branch metFORMIN 2018-12 Yes 500mg Take 500 Uni vers 500 mg 0-01 mg by ity of tablet 20:47: mouth 2 [place] 05 (two) Medical times Branch daily with meals. zolpidem 2018-12 Yes 12.5mg Take 12.5 [place] (AMBIEN CR) 0-01 mg by ity of 12.5 mg CR 20:47: mouth at [place] tablet 05 bedtime. Medical Branch allopurinol 2018-12 Yes 300mg Take 300 U nivers (ZYLOPRIM) 0-01 mg by ity of 300 mg 20:47: mouth [place] tablet 05 daily. [facility] sotalol 2018-12 Yes 80mg Take 80 mg [facility] (SOTALOL 0-01 by mouth ity of AF) 80 mg 20:47: daily. [place] tablet 05 Medical Branch gabapentin 2018-12 Yes 800mg Take 800 [facility] (NEURONTIN) 0-01 mg by ity of 800 mg 20:47: mouth 4 [place] tablet 05 (four) Medical times Branch daily. aspirin 81 2018-12 Yes 81mg Take 81 mg [facility] mg EC 0-01 by mouth ity of tablet 20:47: daily. Medical Branch Liraglutide 2018-12 Yes 1.2mg inject 1.2 [facility] (VICTOZA 0-01 mg under ity of 2-AYALA) 0.6 20:47: the [place] mg/0.1 mL 05 daily. Medical (18 mg/3 Branch mL) PnIj multivitami 2018-12 Yes 1{tbl} Take 1 [facility] n, 0-01 tablet by ity of [place]-minerals 20:47: mouth [place] (COMPLETE 05 daily. Medical MULTIVITAMI Branch N) tablet tacrine HCl 2018-12 Yes 1{tbl} Take 1 [facility] (COGNEX 0-01 tablet by ity of ORAL) 20:47: mouth [place] 05 daily. Medical Branch metFORMIN 2018-12 Yes 500mg Take 500 [facility] vers 500 mg 0-01 mg by ity of tablet 20:47: mouth 2 [place] 05 (two) Medical times Branch daily with meals. zolpidem 2018-12 Yes 12.5mg Take 12.5 [facility] (AMBIEN CR) 0-01 mg by ity of 12.5 mg CR 20:47: mouth at [place] tablet 05 bedtime. [facility] allopurinol 2018-12 Yes 300mg Take 300 [facility] (ZYLOPRIM) 0-01 mg by ity of 300 mg 20:47: mouth [place] tablet 05 daily. Medical [facility] sotalol 2018-12 Yes 80mg Take 80 mg [facility] (SOTALOL 0-01 by mouth ity of AF) 80 mg 20:47: daily. [place] tablet 05 Medical [facility] gabapentin 2018-12 Yes 800mg Take 800 [facility] [place] (NEURONTIN) 0-01 mg by ity of 800 mg 20:47: mouth 4 [place] tablet 05 (four) Medical times Branch daily. aspirin 81 2018-12 Yes 81mg Take 81 mg [facility] mg EC 0-01 by mouth ity of tablet 20:47: daily. Medical [facility] Liraglutide 2018-12 Yes 1.2mg inject 1.2 [facility] (VICTOZA 0-01 mg under ity of 2-AYALA) 0.6 20:47: the skin [place] mg/0.1 mL 05 daily. Medical (18 mg/3 Branch mL) PnIj multivitami 2018-12 Yes 1{tbl} Take 1 [facility] [place] n, 0-01 tablet by ity of [place]-minerals 20:47: mouth [place] (COMPLETE 05 daily. Medical MULTIVITAMI Branch N) tablet tacrine HCl 2018-12 Yes 1{tbl} Take 1 [facility] (COGNEX 0-01 tablet by ity of ORAL) 20:47: mouth [place] 05 daily. Medical Branch metFORMIN 2018-12 Yes 500mg Take 500 [facility] vers 500 mg 0-01 mg by ity of tablet 20:47: mouth 2 [place] 05 (two) Medical times Branch daily with meals. zolpidem 2018-12 Yes 12.5mg Take 12.5 [facility] [place] (AMBIEN CR) 0-01 mg by ity of 12.5 mg CR 20:47: mouth at [place] tablet 05 bedtime. [facility] allopurinol 2018-12 Yes 300mg Take 300 [facility] (ZYLOPRIM) 0-01 mg by ity of 300 mg 20:47: mouth [place] tablet 05 daily. Medical [facility] sotalol 2018-12 Yes 80mg Take 80 mg [facility] (SOTALOL 0-01 by mouth ity of AF) 80 mg 20:47: daily. [place] tablet 05 Medical [facility] gabapentin 2018-12 Yes 800mg Take 800 [facility] [place] (NEURONTIN) 0-01 mg by ity of 800 mg 20:47: mouth 4 [place] tablet 05 (four) Medical times Branch daily. aspirin 81 2018-12 Yes 81mg Take 81 mg [facility] mg EC 0-01 by mouth ity of tablet 20:47: daily. [place] 05 Medical Branch Liraglutide 2018-12 Yes 1.2mg inject 1.2 [facility] (VICTOZA 0-01 mg under ity of 2-AYALA) 0.6 20:47: the [place] mg/0.1 mL 05 daily. Medical (18 mg/3 Branch mL) PnIj multivitami 2018-12 Yes 1{tbl} Take 1 [facility] [place] n, 0-01 tablet by ity of [place]-minerals 20:47: mouth [place] (COMPLETE 05 daily. Medical MULTIVITAMI Branch N) tablet tacrine HCl 2018-12 Yes 1{tbl} Take 1 [facility] [place] (COGNEX 0-01 tablet by ity of ORAL) 20:47: mouth [place] 05 daily. Medical Branch metFORMIN 2018-12 Yes 500mg Take 500 [facility] vers 500 mg 0-01 mg by ity of tablet 20:47: mouth 2 [place] 05 (two) Medical times Branch daily with meals. zolpidem 2018-12 Yes 12.5mg Take 12.5 [facility] [place] (AMBIEN CR) 0-01 mg by ity of 12.5 mg CR 20:47: mouth at [place] tablet 05 bedtime. [facility] allopurinol 2018-12 Yes 300mg Take 300 [facility] (ZYLOPRIM) 0-01 mg by ity of 300 mg 20:47: mouth [place] tablet 05 daily. Medical Branch sotalol 2018-12 Yes 80mg Take 80 mg [facility] (SOTALOL 0-01 by mouth ity of AF) 80 mg 20:47: daily. [place] tablet 05 Medical Branch gabapentin 2018-12 Yes 800mg Take 800 [facility] [place] (NEURONTIN) 0-01 mg by ity of 800 mg 20:47: mouth 4 [place] tablet 05 (four) Medical times Branch daily. aspirin 81 2018-12 Yes 81mg Take 81 mg [facility] mg EC 0-01 by mouth ity of tablet 20:47: daily. [place] 05 Medical Branch Liraglutide 2018-12 Yes 1.2mg inject 1.2 [facility] (VICTOZA 0-01 mg under ity of 2-AYALA) 0.6 20:47: the skin [place] mg/0.1 mL 05 daily. Medical (18 mg/3 Branch mL) PnIj multivitami 2018-12 Yes 1{tbl} Take 1 [facility] [place] n, 0-01 tablet by ity of [place]-minerals 20:47: mouth [place] (COMPLETE 05 daily. Medical MULTIVITAMI Branch N) tablet tacrine HCl 2018-12 Yes 1{tbl} Take 1 [facility] [place] (COGNEX 0-01 tablet by ity of ORAL) 20:47: mouth [place] 05 daily. Medical Branch metFORMIN 2018-12 Yes 500mg Take 500 [facility] vers 500 mg 0-01 mg by ity of tablet 20:47: mouth 2 [place] 05 (two) Medical times Branch daily with meals. metFORMIN 2018-12 Yes 500mg Take 500 [facility] vers 500 mg 0-01 mg by ity of tablet 20:47: mouth 2 [place] 05 (two) Medical times Branch daily with meals. metFORMIN 2018-12 Yes 500mg Take 500 [facility] vers 500 mg 0-01 mg by ity of tablet 20:47: mouth 2 [place] 05 (two) Medical times Branch daily with meals. metFORMIN 2018-12 Yes 500mg Take 500 [facility] vers 500 mg 0-01 mg by ity of tablet 20:47: mouth 2 [place] 05 (two) Medical times Branch daily with meals. metFORMIN 2018-12 Yes 500mg Take 500 [facility] vers 500 mg 0-01 mg by ity of tablet 20:47: mouth 2 [place] 05 (two) Medical times Branch daily with meals. acetaminoph 2018-12 Yes [id number] 1{tbl} Take 1 [facility] en-codeine 0-01 05 tablet by ity of (TYLENOL-CO 00:00: mouth [place] DEINE #3) 00 every 4 Medical 300-30 mg (four) Branch tablet hours as needed for Pain (scale 4-6) or Pain (scale 7-10). acetaminoph 2018-12 Yes [id number] 1{tbl} Take 1 [facility] en-codeine 0-01 05 tablet by ity of (TYLENOL-CO 00:00: mouth [place] DEINE #3) 00 every 4 Medical 300-30 mg (four) Branch tablet hours as needed for Pain (scale 4-6) or Pain (scale 7-10). acetaminoph 2018-12 Yes [id number] 1{tbl} Take 1 [facility] en-codeine 0-01 05 tablet by ity of (TYLENOL-CO 00:00: mouth [place] DEINE #3) 00 every 4 Medical 300-30 mg (four) Branch tablet hours as needed for Pain (scale 4-6) or Pain (scale 7-10). acetaminoph 2018-12 Yes [id number] 1{tbl} Take 1 [facility] en-codeine 0-01 05 tablet by ity of (TYLENOL-CO 00:00: mouth [place] DEINE #3) 00 every 4 Medical 300-30 mg (four) Branch tablet hours as needed for Pain (scale 4-6) or Pain (scale 7-10). acetaminoph 2018-12 Yes [id number] 1{tbl} Take 1 [facility] en-codeine 0-01 05 tablet by ity of (TYLENOL-CO 00:00: mouth [place] DEINE #3) 00 every 4 Medical 300-30 mg (four) Branch tablet hours as needed for Pain (scale 4-6) or Pain (scale 7-10). acetaminoph 2018-12 Yes [id number] 1{tbl} Take 1 [facility] en-codeine 0-01 05 tablet by ity of (TYLENOL-CO 00:00: mouth [place] DEINE #3) 00 every 4 Medical 300-30 mg (four) Branch tablet hours as needed for Pain (scale 4-6) or Pain (scale 7-10). acetaminoph 2018-12 Yes [id number] 1{tbl} Take 1 [facility] en-codeine 0-01 05 tablet by ity of (TYLENOL-CO 00:00: mouth [place] DEINE #3) 00 every 4 Medical 300-30 mg (four) Branch tablet hours as needed for Pain (scale 4-6) or Pain (scale 7-10). acetaminoph 2018-12 Yes [id number] 1{tbl} Take 1 [facility] en-codeine 0-01 05 tablet by ity of (TYLENOL-CO 00:00: mouth [place] DEINE #3) 00 every 4 Medical 300-30 mg (four) Branch tablet hours as needed for Pain (scale 4-6) or Pain (scale 7-10). acetaminoph 2018-12 Yes [id number] 1{tbl} Take 1 [facility] en-codeine 0-01 05 tablet by ity of (TYLENOL-CO 00:00: mouth [place] DEINE #3) 00 every 4 Medical 300-30 mg (four) Branch tablet hours as needed for Pain (scale 4-6) or Pain (scale 7-10). acetaminoph 2018-12 Yes [id number] 1{tbl} Take 1 [facility] en-codeine 0-01 05 tablet by ity of (TYLENOL-CO 00:00: mouth [place] DEINE #3) 00 every 4 Medical 300-30 mg (four) Branch tablet hours as needed for Pain (scale 4-6) or Pain (scale 7-10). acetaminoph 2018-12 Yes [id number] 1{tbl} Take 1 [facility] en-codeine 0-01 05 tablet by ity of (TYLENOL-CO 00:00: mouth [place] DEINE #3) 00 every 4 Medical 300-30 mg (four) Branch tablet hours as needed for Pain (scale 4-6) or Pain (scale 7-10). acetaminoph 2018-12 Yes [id number] 1{tbl} Take 1 [facility] en-codeine 0-01 05 tablet by ity of (TYLENOL-CO 00:00: mouth [place] DEINE #3) 00 every 4 Medical 300-30 mg (four) Branch tablet hours as needed for Pain (scale 4-6) or Pain (scale 7-10). acetaminoph 2018-12 Yes [id number] 1{tbl} Take 1 [facility] en-codeine 0-01 05 tablet by ity of (TYLENOL-CO 00:00: mouth [place] DEINE #3) 00 every 4 Medical 300-30 mg (four) Branch tablet hours as needed for Pain (scale 4-6) or Pain (scale 7-10). acetaminoph 2018-12 Yes [id number] 1{tbl} Take 1 [facility] en-codeine 0-01 05 tablet by ity of (TYLENOL-CO 00:00: mouth [place] DEINE #3) 00 every 4 Medical 300-30 mg (four) Branch tablet hours as needed for Pain (scale 4-6) or Pain (scale 7-10). ceFAZolin 2019- No 2g [facility] in dextrose 08-30 ity of (iso-os) 05:00: 16:59 [place] (ANCEF) 2 00 :00 Medical gram/100 mL Branch Piggyback 2 g oxyCODONE-a 2019- No 2{tbl} Uni vers cetaminophe 08-30 ity of n 05:00: 16:59 [place] (PERCOCET) 00 :00 Medical 5-325 mg Branch per tablet 2 tablet clonazePAM 2019-0 Yes .5mg Take 0.5 [facility] vers 0.5 mg 8-05 mg by ity of tablet 00:00: mouth as [place] 00 needed. Medical Branch clonazePAM 2019-0 Yes .5mg Take 0.5 [facility] vers 0.5 mg 8-05 mg by ity of tablet 00:00: mouth as [place] 00 needed. Medical Branch clonazePAM 2019-0 Yes .5mg Take 0.5 [facility] vers 0.5 mg 8-05 mg by ity of tablet 00:00: mouth as [place] 00 needed. Medical Branch clonazePAM 2019-0 Yes .5mg Take 0.5 [facility] vers 0.5 mg 8-05 mg by ity of tablet 00:00: mouth as [place] 00 needed. Medical Branch clonazePAM 2019-0 Yes .5mg Take 0.5 [facility] vers 0.5 mg 8-05 mg by ity of tablet 00:00: mouth as [place] 00 needed. Medical Branch clonazePAM 2019-0 Yes .5mg Take 0.5 [facility] vers 0.5 mg 8-05 mg by ity of tablet 00:00: mouth as [place] 00 needed. Medical Branch clonazePAM 2019-0 Yes .5mg Take 0.5 [facility] vers 0.5 mg 8-05 mg by ity of tablet 00:00: mouth as [place] 00 needed. Medical Branch clonazePAM 2019-0 Yes .5mg Take 0.5 [facility] vers 0.5 mg 8-05 mg by ity of tablet 00:00: mouth as [place] 00 needed. Medical Branch clonazePAM 2019-0 Yes .5mg Take 0.5 [facility] vers 0.5 mg 8-05 mg by ity of tablet 00:00: mouth as [place] 00 needed. Medical Branch clonazePAM 2019-0 Yes .5mg Take 0.5 [facility] vers 0.5 mg 8-05 mg by ity of tablet 00:00: mouth as [place] 00 needed. Medical Branch clonazePAM 2019-0 Yes .5mg Take 0.5 [facility] vers 0.5 mg 8-05 mg by ity of tablet 00:00: mouth as [place] 00 needed. Medical Branch clonazePAM 2019-0 Yes .5mg Take 0.5 [facility] vers 0.5 mg 8-05 mg by ity of tablet 00:00: mouth as [place] 00 needed. Medical Branch clonazePAM 2019-0 Yes .5mg Take 0.5 [facility] vers 0.5 mg 8-05 mg by ity of tablet 00:00: mouth as [place] 00 needed. Medical Branch clonazePAM 2019-0 Yes .5mg Take 0.5 [facility] vers 0.5 mg 8-05 mg by ity of tablet 00:00: mouth as [place] 00 needed. Medical Branch mometasone 2019-0 Yes 1{spray Use 1 [facility] vers 50 8-01 } [place] in ity of mcg/actuati 00:00: each [place] on nasal 00 nostril as Medic al spray needed. Branch mometasone 2019-0 Yes 1{spray Use 1 [facility] vers 50 8-01 } [place] in ity of mcg/actuati 00:00: each [place] on nasal 00 nostril as Medic al spray needed. Branch mometasone Yes 1{spray Use 1 [facility] vers 50 8-01 } [place] in ity of mcg/actuati 00:00: each [place] on nasal 00 nostril as Medic al spray needed. Branch mometasone Yes 1{spray Use 1 [facility] vers 50 8-01 } [place] in ity of mcg/actuati 00:00: each [place] on nasal 00 nostril as Medic al spray needed. Branch mometasone Yes 1{spray Use 1 [facility] vers 50 8-01 } [place] in ity of mcg/actuati 00:00: each [place] on nasal 00 nostril as Medic al spray needed. Branch mometasone Yes 1{spray Use 1 [facility] vers 50 8-01 } [place] in ity of mcg/actuati 00:00: each [place] on nasal 00 nostril as Medic al spray needed. [place] mometasone Yes 1{spray Use 1 [facility] vers 50 8-01 } [place] in ity of mcg/actuati 00:00: each [place] on nasal 00 nostril as Medic al spray needed. Branch mometasone Yes 1{spray Use 1 [facility] vers 50 8-01 } [place] in ity of mcg/actuati 00:00: each [place] on nasal 00 nostril as Medic al spray needed. Branch mometasone Yes 1{spray Use 1 [facility] vers 50 8-01 } [place] in ity of mcg/actuati 00:00: each [place] on nasal 00 nostril as Medic al spray needed. Branch mometasone Yes 1{spray Use 1 [facility] vers 50 8-01 } [place] in ity of mcg/actuati 00:00: each [place] on nasal 00 nostril as Medic al spray needed. Branch mometasone Yes 1{spray Use 1 [facility] vers 50 8-01 } [place] in ity of mcg/actuati 00:00: each [place] on nasal 00 nostril as Medic al spray needed. Branch mometasone Yes 1{spray Use 1 [facility] vers 50 8-01 } [place] in ity of mcg/actuati 00:00: each [place] on nasal 00 nostril as Medic al spray needed. Branch mometasone Yes 1{spray Use 1 [facility] vers 50 8-01 } [place] in ity of mcg/actuati 00:00: each [place] on nasal 00 nostril as Medic al spray needed. Branch mometasone Yes 1{spray Use 1 [facility] vers 50 8-01 } [place] in ity of mcg/actuati 00:00: each [place] on nasal 00 nostril as Medic al spray needed. Branch zolpidem Yes 12.5mg Take 12.5 [facility] [place] (AMBIEN CR) 4-19 mg by ity of 12.5 mg CR 14:30: mouth at [place] tablet 59 bedtime. Medical Branch sotalol Yes 80mg Take 80 mg [facility] (SOTALOL 4-19 by mouth 2 ity o f AF) 80 mg 14:30: (two) [place] tablet 59 times Medical daily. Branch telmisartan Yes 1{tbl} Take 1 Tab [facility] -hydrochlor 4-19 by mouth ity of othiazide 14:30: daily. [place] (MICARDIS 59 Medical HCT) Branch 40-12.5 mg per tablet gabapentin Yes 800mg Take 800 [facility] [place] (NEURONTIN) 4-19 mg by ity of 800 mg 14:30: mouth 3 [place] tablet 59 (three) Medical times Branch daily. Liraglutide Yes 1.2mg inject 1.2 [facility] (VICTOZA 4-19 mg under ity of 2-AYALA) 0.6 14:30: the skin [place] mg/0.1 mL 59 daily. Medical (18 mg/3 Branch mL) PnIj doxepin Yes 50mg Take 50 mg [facility] (SINEQUAN) 4-19 by mouth ity o f 50 mg 14:30: daily. [place] capsule 59 Medical Branch zolpidem Yes 12.5mg Take 12.5 [place] (AMBIEN CR) 4-19 mg by ity of 12.5 mg CR 14:30: mouth at [place] tablet 59 bedtime. Medical Branch sotalol Yes 80mg Take 80 mg [facility] (SOTALOL 4-19 by mouth 2 ity o f AF) 80 mg 14:30: (two) [place] tablet 59 times Medical daily. Branch telmisartan 2019-0 Yes 1{tbl} Take 1 Tab [facility] -hydrochlor 4-19 by mouth ity of othiazide 14:30: daily. [place] (MICARDIS 59 Medical HCT) Branch 40-12.5 mg per tablet gabapentin 0 Yes 800mg Take 800 [place] (NEURONTIN) 4-19 mg by ity of 800 mg 14:30: mouth 3 [place] tablet 59 (three) Medical times Branch daily. Liraglutide 0 Yes 1.2mg inject 1.2 [facility] (VICTOZA 4-19 mg under ity of 2-AYALA) 0.6 14:30: the skin [place] mg/0.1 mL 59 daily. Medical (18 mg/3 Branch mL) PnIj doxepin 0 Yes 50mg Take 50 mg [facility] (SINEQUAN) 4-19 by mouth ity o f 50 mg 14:30: daily. [place] capsule 59 Medical Branch zolpidem 0 Yes 12.5mg Take 12.5 [facility] [place] (AMBIEN CR) 4-19 mg by ity of 12.5 mg CR 14:30: mouth at [place] tablet 59 bedtime. Medical Branch sotalol 0 Yes 80mg Take 80 mg [facility] (SOTALOL 4-19 by mouth 2 ity o f AF) 80 mg 14:30: (two) [place] tablet 59 times Medical daily. Branch telmisartan 2019-0 Yes 1{tbl} Take 1 Tab [facility] -hydrochlor 4-19 by mouth ity of othiazide 14:30: daily. [place] (MICARDIS 59 Medical HCT) Branch 40-12.5 mg per tablet gabapentin 0 Yes 800mg Take 800 [place] (NEURONTIN) 4-19 mg by ity of 800 mg 14:30: mouth 3 [place] tablet 59 (three) Medical times Branch daily. Liraglutide 2019-0 Yes 1.2mg inject 1.2 [facility] (VICTOZA 4-19 mg under ity of 2-AYALA) 0.6 14:30: the skin [place] mg/0.1 mL 59 daily. Medical (18 mg/3 Branch mL) PnIj doxepin 2018-0 Yes 50mg Take 50 mg [facility] (SINEQUAN) 4-19 by mouth ity o f 50 mg 14:30: daily. [place] capsule 59 Medical Branch zolpidem 0 Yes 12.5mg Take 12.5 [facility] [place] (AMBIEN CR) 4-19 mg by ity of 12.5 mg CR 14:30: mouth at [place] tablet 59 bedtime. Medical Branch sotalol Yes 80mg Take 80 mg [facility] (SOTALOL 4-19 by mouth 2 ity o f AF) 80 mg 14:30: (two) [place] tablet 59 times Medical daily. Branch telmisartan Yes 1{tbl} Take 1 Tab [facility] -hydrochlor 4-19 by mouth ity of othiazide 14:30: daily. [place] (MICARDIS 59 Medical HCT) Branch 40-12.5 mg per tablet gabapentin Yes 800mg Take 800 [place] (NEURONTIN) 4-19 mg by ity of 800 mg 14:30: mouth 3 [place] tablet 59 (three) Medical times Branch daily. Liraglutide Yes 1.2mg inject 1.2 [facility] (VICTOZA 4-19 mg under ity of 2-AYALA) 0.6 14:30: the skin [place] mg/0.1 mL 59 daily. Medical (18 mg/3 Branch mL) PnIj doxepin Yes 50mg Take 50 mg [facility] (SINEQUAN) 4-19 by mouth ity o f 50 mg 14:30: daily. [place] capsule 59 Medical Branch zolpidem Yes 12.5mg Take 12.5 [facility] [place] (AMBIEN CR) 4-19 mg by ity of 12.5 mg CR 14:30: mouth at [place] tablet 59 bedtime. Medical Branch sotalol Yes 80mg Take 80 mg [facility] (SOTALOL 4-19 by mouth 2 ity o f AF) 80 mg 14:30: (two) [place] tablet 59 times Medical daily. Branch telmisartan 0 Yes 1{tbl} Take 1 Tab [facility] -hydrochlor 4-19 by mouth ity of othiazide 14:30: daily. [place] (MICARDIS 59 Medical HCT) Branch 40-12.5 mg per tablet gabapentin 0 Yes 800mg Take 800 [place] (NEURONTIN) 4-19 mg by ity of 800 mg 14:30: mouth 3 [place] tablet 59 (three) Medical times Branch daily. Liraglutide 2019-0 Yes 1.2mg inject 1.2 [facility] (VICTOZA 4-19 mg under ity of 2-AYALA) 0.6 14:30: the skin [place] mg/0.1 mL 59 daily. Medical (18 mg/3 Branch mL) PnIj doxepin 2018-0 Yes 50mg Take 50 mg [facility] (SINEQUAN) 4-19 by mouth ity o f 50 mg 14:30: daily. [place] capsule 59 Medical Branch zolpidem 0 Yes 12.5mg Take 12.5 [place] (AMBIEN CR) 4-19 mg by ity of 12.5 mg CR 14:30: mouth at [place] tablet 59 bedtime. Medical Branch sotalol 0 Yes 80mg Take 80 mg [facility] (SOTALOL 4-19 by mouth 2 ity o f AF) 80 mg 14:30: (two) [place] tablet 59 times Medical daily. Branch telmisartan Yes 1{tbl} Take 1 Tab [facility] -hydrochlor 4-19 by mouth ity of othiazide 14:30: daily. [place] (MICARDIS 59 Medical HCT) Branch 40-12.5 mg per tablet gabapentin 0 Yes 800mg Take 800 [place] (NEURONTIN) 4-19 mg by ity of 800 mg 14:30: mouth 3 [place] tablet 59 (three) Medical times Branch daily. Liraglutide 0 Yes 1.2mg inject 1.2 [facility] (VICTOZA 4-19 mg under ity of 2-AYALA) 0.6 14:30: the skin [place] mg/0.1 mL 59 daily. Medical (18 mg/3 Branch mL) PnIj doxepin 2018-0 Yes 50mg Take 50 mg [facility] (SINEQUAN) 4-19 by mouth ity o f 50 mg 14:30: daily. [place] capsule 59 Medical Branch zolpidem 0 Yes 12.5mg Take 12.5 [place] (AMBIEN CR) 4-19 mg by ity of 12.5 mg CR 14:30: mouth at [place] tablet 59 bedtime. Medical Branch sotalol 0 Yes 80mg Take 80 mg [facility] (SOTALOL 4-19 by mouth 2 ity o f AF) 80 mg 14:30: (two) [place] tablet 59 times Medical daily. Branch telmisartan 2019-0 Yes 1{tbl} Take 1 Tab [facility] -hydrochlor 4-19 by mouth ity of othiazide 14:30: daily. [place] (MICARDIS 59 Medical HCT) Branch 40-12.5 mg per tablet gabapentin 0 Yes 800mg Take 800 [place] (NEURONTIN) 4-19 mg by ity of 800 mg 14:30: mouth 3 [place] tablet 59 (three) Medical times Branch daily. Liraglutide 0 Yes 1.2mg inject 1.2 [facility] (VICTOZA 4-19 mg under ity of 2-AYALA) 0.6 14:30: the skin [place] mg/0.1 mL 59 daily. Medical (18 mg/3 Branch mL) PnIj doxepin 0 Yes 50mg Take 50 mg [facility] (SINEQUAN) 4-19 by mouth ity o f 50 mg 14:30: daily. [place] capsule 59 Medical Branch zolpidem 0 Yes 12.5mg Take 12.5 [place] (AMBIEN CR) 4-19 mg by ity of 12.5 mg CR 14:30: mouth at [place] tablet 59 bedtime. Medical Branch sotalol 0 Yes 80mg Take 80 mg [facility] (SOTALOL 4-19 by mouth 2 ity o f AF) 80 mg 14:30: (two) [place] tablet 59 times Medical daily. Branch telmisartan 2019-0 Yes 1{tbl} Take 1 Tab [facility] -hydrochlor 4-19 by mouth ity of othiazide 14:30: daily. [place] (MICARDIS 59 Medical HCT) Branch 40-12.5 mg per tablet gabapentin 0 Yes 800mg Take 800 [place] (NEURONTIN) 4-19 mg by ity of 800 mg 14:30: mouth 3 [place] tablet 59 (three) Medical times Branch daily. Liraglutide 2019-0 Yes 1.2mg inject 1.2 [facility] (VICTOZA 4-19 mg under ity of 2-AYALA) 0.6 14:30: the skin [place] mg/0.1 mL 59 daily. Medical (18 mg/3 Branch mL) PnIj doxepin 2018-0 Yes 50mg Take 50 mg [facility] (SINEQUAN) 4-19 by mouth ity o f 50 mg 14:30: daily. [place] capsule 59 Medical Branch zolpidem 0 Yes 12.5mg Take 12.5 [place] (AMBIEN CR) 4-19 mg by ity of 12.5 mg CR 14:30: mouth at [place] tablet 59 bedtime. Medical Branch sotalol Yes 80mg Take 80 mg [facility] (SOTALOL 4-19 by mouth 2 ity o f AF) 80 mg 14:30: (two) [place] tablet 59 times Medical daily. Branch telmisartan Yes 1{tbl} Take 1 Tab [facility] -hydrochlor 4-19 by mouth ity of othiazide 14:30: daily. [place] (MICARDIS 59 Medical HCT) Branch 40-12.5 mg per tablet gabapentin Yes 800mg Take 800 [place] (NEURONTIN) 4-19 mg by ity of 800 mg 14:30: mouth 3 [place] tablet 59 (three) Medical times Branch daily. Liraglutide Yes 1.2mg inject 1.2 [facility] (VICTOZA 4-19 mg under ity of 2-AYALA) 0.6 14:30: the [place] mg/0.1 mL 59 daily. Medical (18 mg/3 Branch mL) PnIj doxepin Yes 50mg Take 50 mg [facility] (SINEQUAN) 4-19 by mouth ity o f 50 mg 14:30: daily. [place] capsule 59 Medical Branch zolpidem Yes 12.5mg Take 12.5 [place] (AMBIEN CR) 4-19 mg by ity of 12.5 mg CR 14:30: mouth at [place] tablet 59 bedtime. Medical Branch sotalol Yes 80mg Take 80 mg [facility] (SOTALOL 4-19 by mouth 2 ity o f AF) 80 mg 14:30: (two) [place] tablet 59 times Medical daily. Branch telmisartan 0 Yes 1{tbl} Take 1 Tab [facility] -hydrochlor 4-19 by mouth ity of othiazide 14:30: daily. [place] (MICARDIS 59 Medical HCT) Branch 40-12.5 mg per tablet gabapentin 0 Yes 800mg Take 800 [place] (NEURONTIN) 4-19 mg by ity of 800 mg 14:30: mouth 3 [place] tablet 59 (three) Medical times Branch daily. Liraglutide 2019-0 Yes 1.2mg inject 1.2 [facility] (VICTOZA 4-19 mg under ity of 2-AYALA) 0.6 14:30: the [place] mg/0.1 mL 59 daily. Medical (18 mg/3 Branch mL) PnIj doxepin 2019-0 Yes 50mg Take 50 mg [facility] (SINEQUAN) 4-19 by mouth ity o f 50 mg 14:30: daily. [place] capsule 59 Medical Branch zolpidem 2019-0 Yes 12.5mg Take 12.5 [place] (AMBIEN CR) 4-19 mg by ity of 12.5 mg CR 14:30: mouth at [place] tablet 59 bedtime. Medical Branch sotalol 0 Yes 80mg Take 80 mg [facility] (SOTALOL 4-19 by mouth 2 ity o f AF) 80 mg 14:30: (two) [place] tablet 59 times Medical daily. Branch telmisartan 0 Yes 1{tbl} Take 1 Tab [facility] -hydrochlor 4-19 by mouth ity of othiazide 14:30: daily. [place] (MICARDIS 59 Medical HCT) Branch 40-12.5 mg per tablet gabapentin 2018-0 Yes 800mg Take 800 [place] (NEURONTIN) 4-19 mg by ity of 800 mg 14:30: mouth 3 [place] tablet 59 (three) Medical times Branch daily. Liraglutide 2019-0 Yes 1.2mg inject 1.2 [facility] (VICTOZA 4-19 mg under ity of 2-AYALA) 0.6 14:30: the [place] mg/0.1 mL 59 daily. Medical (18 mg/3 Branch mL) PnIj doxepin 2019-0 Yes 50mg Take 50 mg [facility] (SINEQUAN) 4-19 by mouth ity o f 50 mg 14:30: daily. [place] capsule 59 Medical Branch allopurinol 2019-0 Yes 300mg Take 300 [facility] n[facility] (ZYLOPRIM) 4-19 mg by ity of 300 mg 14:29: mouth [place] tablet 46 daily. Medical Branch aspirin 81 2019-0 Yes 81mg Take 81 mg [facility] n[facility] mg EC 4-19 by mouth ity of tablet 14:29: daily. [place] 46 Medical Branch allopurinol 2019-0 Yes 300mg Take 300 [facility] n[facility] (ZYLOPRIM) 4-19 mg by ity of 300 mg 14:29: mouth [place] tablet 46 daily. Medical Branch aspirin 81 2019-0 Yes 81mg Take 81 mg [facility] n[facility] mg EC 4-19 by mouth ity of tablet 14:29: daily. [place] [address] Medical Branch allopurinol 2019-0 Yes 300mg Take 300 [facility] n[facility] (ZYLOPRIM) 4-19 mg by ity of 300 mg 14:29: mouth [place] tablet 46 daily. Medical Branch aspirin 81 2019-0 Yes 81mg Take 81 mg [facility] n[facility] mg EC 4-19 by mouth ity of tablet 14:29: daily. [place] [address] Medical Branch allopurinol 2019-0 Yes 300mg Take 300 [facility] (ZYLOPRIM) 4-19 mg by ity of 300 mg 14:29: mouth [place] tablet 46 daily. Medical Branch aspirin 81 2018-0 Yes 81mg Take 81 mg [facility] n[facility] mg EC 4-19 by mouth ity of tablet 14:29: daily. [place] [address] Medical Branch allopurinol 2019-0 Yes 300mg Take 300 U n[facility] (ZYLOPRIM) 4-19 mg by ity of 300 mg 14:29: mouth [place] tablet 46 daily. Medical Branch aspirin 81 2018-0 Yes 81mg Take 81 mg U nivers mg EC 4-19 by mouth ity of tablet 14:29: daily. [place] [address] [facility] Branch allopurinol 2019-0 Yes 300mg Take 300 U nivers (ZYLOPRIM) 4-19 mg by ity of 300 mg 14:29: mouth [place] tablet 46 daily. Medical Branch aspirin 81 2019-0 Yes 81mg Take 81 mg U nivers mg EC 4-19 by mouth ity of tablet 14:29: daily. [place] [address] [facility] Branch allopurinol 2019-0 Yes 300mg Take 300 U nivers (ZYLOPRIM) 4-19 mg by ity of 300 mg 14:29: mouth [place] tablet 46 daily. Medical Branch aspirin 81 2019-0 Yes 81mg Take 81 mg U nivers mg EC 4-19 by mouth ity of tablet 14:29: daily. [place] [address] [facility] Branch allopurinol 2019-0 Yes 300mg Take 300 U nivers (ZYLOPRIM) 4-19 mg by ity of 300 mg 14:29: mouth [place] tablet 46 daily. Medical Branch aspirin 81 2019-0 Yes 81mg Take 81 mg U nivers mg EC 4-19 by mouth ity of tablet 14:29: daily. [address] Branch allopurinol 0 Yes 300mg Take 300 U nivers (ZYLOPRIM) 4-19 mg by ity of 300 mg 14:29: mouth [place] tablet 46 daily. Medical Branch aspirin 81 0 Yes 81mg Take 81 mg U nivers mg EC 4-19 by mouth ity of tablet 14:29: daily. [address] Branch allopurinol 0 Yes 300mg Take 300 U nivers (ZYLOPRIM) 4-19 mg by ity of 300 mg 14:29: mouth [place] tablet 46 daily. [facility] Branch aspirin 81 Yes 81mg Take 81 mg U nivers mg EC 4-19 by mouth ity of tablet 14:29: daily. [address] allopurinol Yes 300mg Take 300 U nivers (ZYLOPRIM) 4-19 mg by ity of 300 mg 14:29: mouth [place] tablet 46 daily. [facility] Branch aspirin 81 Yes 81mg Take 81 mg U nivers mg EC 4-19 by mouth ity of tablet 14:29: daily. [address] telmisartan 0 Yes Univer s 40 mg 4-11 ity of tablet 00:00: [address] Branch telmisartan 2018-0 Yes Univer s 40 mg 4-11 ity of tablet 00:00: [address] Branch telmisartan 2018-0 Yes Univer s 40 mg 4-11 ity of tablet 00:00: [place] [address] Medical Branch telmisartan 2019-0 Yes Univer s 40 mg 4-11 ity of tablet 00:00: [address] Branch telmisartan 2019-0 Yes Univer s 40 mg 4-11 ity of tablet 00:00: [place] [address] Medical Branch telmisartan 2019-0 Yes Univer s 40 mg 4-11 ity of tablet 00:00: [address] Branch telmisartan 2019-0 Yes Univer s 40 mg 4-11 ity of tablet 00:00: [address] telmisartan 2018-0 Yes 40mg Take 40 mg Univers 40 mg 4-11 by mouth ity of tablet 00:00: daily. [address] telmisartan 2019-0 Yes 40mg Take 40 mg Univers 40 mg 4-11 by mouth ity of tablet 00:00: daily. [facility] Branch telmisartan 2019-0 Yes 40mg Take 40 mg Univers 40 mg 4-11 by mouth ity of tablet 00:00: daily. [place] [facility] telmisartan 2019-0 Yes 40mg Take 40 mg Univers 40 mg 4-11 by mouth ity of tablet 00:00: daily. [facility] telmisartan 2019-0 Yes 40mg Take 40 mg Univers 40 mg 4-11 by mouth ity of tablet 00:00: daily. [place] [facility] telmisartan 2019-0 Yes 40mg Take 40 mg Univers 40 mg 4-11 by mouth ity of tablet 00:00: daily. [place] [facility] telmisartan 2019-0 Yes 40mg Take 40 mg Univers 40 mg 4-11 by mouth ity of tablet 00:00: daily. [place] [facility] telmisartan 2019-0 Yes 40mg Take 40 mg Univers 40 mg 4-11 by mouth ity of tablet 00:00: daily. [place] [facility] telmisartan 2019-0 Yes Univer s 40 mg 4-11 ity of tablet 00:00: [place] [facility] telmisartan 2019-0 Yes 40mg Take 40 mg Univers 40 mg 4-11 by mouth ity of tablet 00:00: daily. [place] [facility] telmisartan 2019-0 Yes 40mg Take 40 mg Univers 40 mg 4-11 by mouth ity of tablet 00:00: daily. [place] [facility] telmisartan 2019-0 Yes 40mg Take 40 mg Univers 40 mg 4-11 by mouth ity of tablet 00:00: daily. [place] [facility] telmisartan 2019-0 Yes 40mg Take 40 mg Univers 40 mg 4-11 by mouth ity of tablet 00:00: daily. [place] [facility] telmisartan 2019-0 Yes 40mg Take 40 mg Univers 40 mg 4-11 by mouth ity of tablet 00:00: daily. [place] [facility] telmisartan 2019-0 Yes 40mg Take 40 mg Univers 40 mg 4-11 by mouth ity of tablet 00:00: daily. [place] [facility] telmisartan 2019-0 Yes Univer s 40 mg 4-11 ity of tablet 00:00: [place] [facility] Branch telmisartan 2019-0 Yes Univer s 40 mg 4-11 ity of tablet 00:00: [address] telmisartan 2019-0 Yes Univer s 40 mg 4-11 ity of tablet 00:00: [address] metFORMIN 2019-0 Yes Univers 1,000 mg 3-25 ity of tablet 00:00: [address] metFORMIN 2019-0 Yes Univers 1,000 mg 3-25 ity of tablet 00:00: [address] metFORMIN 2019-0 Yes Univers 1,000 mg 3-25 ity of tablet 00:00: [address] metFORMIN 2019-0 Yes Univers 1,000 mg 3-25 ity of tablet 00:00: [address] metFORMIN 2019-0 Yes Univers 1,000 mg 3-25 ity of tablet 00:00: [address] metFORMIN 2019-0 Yes Univers 1,000 mg 3-25 ity of tablet 00:00: [address] metFORMIN 2019-0 Yes Univers 1,000 mg 3-25 ity of tablet 00:00: [address] metFORMIN 2019-0 Yes Univers 1,000 mg 3-25 ity of tablet 00:00: [address] metFORMIN 2019-0 Yes Univers 1,000 mg 3-25 ity of tablet 00:00: [address] metFORMIN 2019-0 Yes Univers 1,000 mg 3-25 ity of tablet 00:00: [address] metFORMIN 2019-0 Yes Univers 1,000 mg 3-25 ity of tablet 00:00: [address] JARDIANCE 2019-0 Yes Univers 10 mg Tab 3-01 ity of 00:00: [address] JARDIANCE 2019-0 Yes Univers 10 mg Tab 3-01 ity of 00:00: [address] JARDIANCE 2019-0 Yes Univers 10 mg Tab 3-01 ity of 00:00: [address] JARDIANCE 2019-0 Yes Univers 10 mg Tab 3-01 ity of 00:00: [address] JARDIANCE 2019-0 Yes Univers 10 mg Tab 3-01 ity of 00:00: [address] JARDIANCE 2019-0 Yes Univers 10 mg Tab 3-01 ity of 00:00: [place] 00 [facility] JARDIANCE 2019-0 Yes Univers 10 mg Tab 3-01 ity of 00:00: Medical Branch JARDIANCE 2018-0 Yes 10mg Take 10 mg Un shane 10 mg Tab 3-01 by mouth ity of 00:00: daily. Medical Branch JARDIANCE 2018-0 Yes 10mg Take 10 mg Un shane 10 mg Tab 3-01 by mouth ity of 00:00: daily. Medical Branch JARDIANCE 2018-0 Yes 10mg Take 10 mg Un shane 10 mg Tab 3-01 by mouth ity of 00:00: daily. Medical Branch JARDIANCE 2018-0 Yes 10mg Take 10 mg Un shane 10 mg Tab 3-01 by mouth ity of 00:00: daily. Medical Branch JARDIANCE 2018-0 Yes 10mg Take 10 mg Un shane 10 mg Tab 3-01 by mouth ity of 00:00: daily. Medical Branch JARDIANCE 2018-0 Yes 10mg Take 10 mg Un shane 10 mg Tab 3-01 by mouth ity of 00:00: daily. Medical Branch JARDIANCE 2018-0 Yes 10mg Take 10 mg Un shane 10 mg Tab 3-01 by mouth ity of 00:00: daily. Medical Branch JARDIANCE 2018-0 Yes Univers 10 mg Tab 3-01 ity of 00:00: Medical Branch JARDIANCE 2018-0 Yes 10mg Take 10 mg Un shane 10 mg Tab 3-01 by mouth ity of 00:00: daily. Medical Branch JARDIANCE 2018-0 Yes 10mg Take 10 mg Un shane 10 mg Tab 3-01 by mouth ity of 00:00: daily. Medical Branch JARDIANCE 2018-0 Yes 10mg Take 10 mg Un shane 10 mg Tab 3-01 by mouth ity of 00:00: daily. Medical Branch JARDIANCE 2018-0 Yes 10mg Take 10 mg Un shane 10 mg Tab 3-01 by mouth ity of 00:00: daily. Medical Branch JARDIANCE 2018-0 Yes 10mg Take 10 mg Un shane 10 mg Tab 3-01 by mouth ity of 00:00: daily. Medical Branch JARDIANCE 2018-0 Yes 10mg Take 10 mg Un shane 10 mg Tab 3-01 by mouth ity of 00:00: daily. [place] [facility] JARDIANCE 2019-0 Yes 10mg Take 10 mg Un shane 10 mg Tab 3-01 by mouth ity of 00:00: daily. [place] [facility] JARDIANCE 2019-0 Yes Univers 10 mg Tab 3-01 ity of 00:00: [place] [facility] JARDIANCE 2019-0 Yes Univers 10 mg Tab 3-01 ity of 00:00: [place] [facility] JARDIANCE 2019-0 Yes Univers 10 mg Tab 3-01 ity of 00:00: [place] [facility] DULoxetine 2019-0 Yes Univers 60 mg 1-21 ity of capsule 00:00: [place] [facility] DULoxetine 2019-0 Yes Univers 60 mg 1-21 ity of capsule 00:00: [address] Branch DULoxetine 2019-0 Yes Univers 60 mg 1-21 ity of capsule 00:00: [address] DULoxetine 2019-0 Yes Univers 60 mg 1-21 ity of capsule 00:00: [address] DULoxetine 2019-0 Yes Univers 60 mg 1-21 ity of capsule 00:00: [address] DULoxetine 2019-0 Yes Univers 60 mg 1-21 ity of capsule 00:00: [address] DULoxetine 2019-0 Yes Univers 60 mg 1-21 ity of capsule 00:00: [address] DULoxetine 2019-0 Yes 60mg Take 60 mg U nivers 60 mg 1-21 by mouth ity of capsule 00:00: daily. [address] DULoxetine 2019-0 Yes 60mg Take 60 mg U nivers 60 mg 1-21 by mouth ity of capsule 00:00: daily. [address] DULoxetine 2019-0 Yes 60mg Take 60 mg U nivers 60 mg 1-21 by mouth ity of capsule 00:00: daily. [address] DULoxetine 2019-0 Yes 60mg Take 60 mg U nivers 60 mg 1-21 by mouth ity of capsule 00:00: daily. [address] DULoxetine 2019-0 Yes 60mg Take 60 mg U nivers 60 mg 1-21 by mouth ity of capsule 00:00: daily. [address] DULoxetine 2019-0 Yes 60mg Take 60 mg U nivers 60 mg 1-21 by mouth ity of capsule 00:00: daily. [place] [facility] Branch DULoxetine 2019-0 Yes 60mg Take 60 mg U nivers 60 mg 1-21 by mouth ity of capsule 00:00: daily. [place] [facility] DULoxetine 2019-0 Yes Univers 60 mg 1-21 ity of capsule 00:00: [place] [facility] DULoxetine 2019-0 Yes 60mg Take 60 mg U nivers 60 mg 1-21 by mouth ity of capsule 00:00: daily. [place] [facility] DULoxetine 2019-0 Yes 60mg Take 60 mg U nivers 60 mg 1-21 by mouth ity of capsule 00:00: daily. [place] [facility] DULoxetine 2019-0 Yes 60mg Take 60 mg U nivers 60 mg 1-21 by mouth ity of capsule 00:00: daily. [place] [facility] DULoxetine 2019-0 Yes 60mg Take 60 mg U nivers 60 mg 1-21 by mouth ity of capsule 00:00: daily. [place] [facility] DULoxetine 2019-0 Yes 60mg Take 60 mg U nivers 60 mg 1-21 by mouth ity of capsule 00:00: daily. [place] [facility] DULoxetine 2019-0 Yes 60mg Take 60 mg U nivers 60 mg 1-21 by mouth ity of capsule 00:00: daily. [place] [facility] DULoxetine 2019-0 Yes 60mg Take 60 mg U nivers 60 mg 1-21 by mouth ity of capsule 00:00: daily. [place] [facility] DULoxetine 2019-0 Yes Univers 60 mg 1-21 ity of capsule 00:00: [place] [facility] DULoxetine 2019-0 Yes Univers 60 mg 1-21 ity of capsule 00:00: [place] [facility] DULoxetine 2019-0 Yes Univers 60 mg 1-21 ity of capsule 00:00: [place] [facility] diclofenac 2016-0 Yes TAKE ONE Uni vers (VOLTAREN) 4-12 TABLET BY ity of 75 mg EC 00:00: MOUTH [place] tablet 00 TWICE A Medical DAY WITH Branch MEALS diclofenac 2015- Yes TAKE ONE Uni vers (VOLTAREN) 4-12 TABLET BY ity of 75 mg EC 00:00: MOUTH [place] tablet 00 TWICE A Medical DAY WITH Branch MEALS diclofenac 2015- Yes TAKE ONE Uni vers (VOLTAREN) 4-12 TABLET BY ity of 75 mg EC 00:00: MOUTH [place] tablet 00 TWICE A Medical DAY WITH Branch MEALS diclofenac Yes TAKE ONE Uni vers (VOLTAREN) 4-12 TABLET BY ity of 75 mg EC 00:00: MOUTH [place] tablet 00 TWICE A Medical DAY WITH Branch MEALS diclofenac Yes TAKE ONE Uni vers (VOLTAREN) 4-12 TABLET BY ity of 75 mg EC 00:00: MOUTH [place] tablet 00 TWICE A Medical DAY WITH Branch MEALS diclofenac Yes TAKE ONE Uni vers (VOLTAREN) 4-12 TABLET BY ity of 75 mg EC 00:00: MOUTH [place] tablet 00 TWICE A Medical DAY WITH Branch MEALS diclofenac Yes TAKE ONE Uni vers (VOLTAREN) 4-12 TABLET BY ity of 75 mg EC 00:00: MOUTH [place] tablet 00 TWICE A Medical DAY WITH Branch MEALS diclofenac Yes TAKE ONE Uni vers (VOLTAREN) 4-12 TABLET BY ity of 75 mg EC 00:00: MOUTH [place] tablet 00 TWICE A Medical DAY WITH Branch MEALS diclofenac Yes TAKE ONE Uni vers (VOLTAREN) 4-12 TABLET BY ity of 75 mg EC 00:00: MOUTH [place] tablet 00 TWICE A Medical DAY WITH Branch MEALS diclofenac Yes TAKE ONE Uni vers (VOLTAREN) 4-12 TABLET BY ity of 75 mg EC 00:00: MOUTH [place] tablet 00 TWICE A Medical DAY WITH Branch MEALS diclofenac Yes TAKE ONE Uni vers (VOLTAREN) 4-12 TABLET BY ity of 75 mg EC 00:00: MOUTH [place] tablet 00 TWICE A Medical DAY WITH Branch MEALS methylPREDN Yes 84mg Take 21 Uni vers ISolone 3-18 Tabs by ity of (MEDROL, 00:00: mouth [place] AYALA,) 4 mg 00 SEE-INSTRU Med ical tablets CTIONS. Branch follow package directions methylPREDN Yes 84mg Take 21 Uni vers ISolone 3-18 Tabs by ity of (MEDROL, 00:00: mouth [place] AYALA,) 4 mg 00 SEE-INSTRU Med ical tablets CTIONS. Branch follow package directions methylPREDN 2015-0 Yes 84mg Take 21 Uni vers ISolone 3-18 Tabs by ity of (MEDROL, 00:00: mouth [place] AYALA,) 4 mg 00 SEE-INSTRU Med ical tablets CTIONS. Branch follow package directions methylPREDN 2016-0 Yes 84mg Take 21 Uni vers ISolone 3-18 Tabs by ity of (MEDROL, 00:00: mouth [place] AYALA,) 4 mg 00 SEE-INSTRU Med ical tablets CTIONS. Branch follow package directions methylPREDN 2016-0 Yes 84mg Take 21 Uni vers ISolone 3-18 Tabs by ity of (MEDROL, 00:00: mouth [place] AYALA,) 4 mg 00 SEE-INSTRU Med ical tablets CTIONS. Branch follow package directions methylPREDN 2016-0 Yes 84mg Take 21 Uni vers ISolone 3-18 Tabs by ity of (MEDROL, 00:00: mouth [place] AYALA,) 4 mg 00 SEE-INSTRU Med ical tablets CTIONS. Branch follow package directions methylPREDN 2016-0 Yes 84mg Take 21 Uni vers ISolone 3-18 Tabs by ity of (MEDROL, 00:00: mouth [place] AYALA,) 4 mg 00 SEE-INSTRU Med ical tablets CTIONS. Branch follow package directions methylPREDN 2016-0 Yes 84mg Take 21 Uni vers ISolone 3-18 Tabs by ity of (MEDROL, 00:00: mouth [place] AYALA,) 4 mg 00 SEE-INSTRU Med ical tablets CTIONS. Branch follow package directions methylPREDN 2016-0 Yes 84mg Take 21 Uni vers ISolone 3-18 Tabs by ity of (MEDROL, 00:00: mouth [place] AYALA,) 4 mg 00 SEE-INSTRU Med ical tablets CTIONS. Branch follow package directions methylPREDN 2016-0 Yes 84mg Take 21 Uni vers ISolone 3-18 Tabs by ity of (MEDROL, 00:00: mouth [place] AYALA,) 4 mg 00 SEE-INSTRU Med ical tablets CTIONS. Branch follow package directions methylPREDN 2016-0 Yes 84mg Take 21 Uni vers ISolone 3-18 Tabs by ity of (MEDROL, 00:00: mouth [place] AYALA,) 4 mg 00 SEE-INSTRU Med ical tablets CTIONS. Branch follow package directions LANCETS,ULT 2014-0 Yes [place] [facility] RA THIN 8-28 ity of MISC 00:00: [place] 00 Medical Branch LANCETS,ULT 2014-0 Yes Univashely s RA THIN 8-28 ity of MISC 00:00: [place] 00 [facility] Branch LANCETS,ULT 2015-0 Yes Univer s RA THIN 8-28 ity of MISC 00:00: [place] 00 [facility] Branch LANCETS,ULT 2015-0 Yes Univer s RA THIN 8-28 ity of MISC 00:00: [place] 00 [facility] Branch LANCETS,ULT 2015-0 Yes Univer s RA THIN 8-28 ity of MISC 00:00: [place] 00 [facility] Branch LANCETS,ULT 2015-0 Yes Univer s RA THIN 8-28 ity of MISC 00:00: [place] 00 [facility] Branch LANCETS,ULT 2015-0 Yes Univer s RA THIN 8-28 ity of MISC 00:00: [place] 00 [facility] Branch LANCETS,ULT 2015-0 Yes Univer s RA THIN 8-28 ity of MISC 00:00: [place] 00 [facility] LANCETS,ULT 2015-0 Yes Univer s RA THIN 8-28 ity of MISC 00:00: [place] [facility] LANCETS,ULT 2015-0 Yes Univer s RA THIN 8-28 ity of MISC 00:00: [place] 00 [facility] Branch LANCETS,ULT 2015-0 Yes Univer s RA THIN 8-28 ity of MISC 00:00: [place] 00 [facility] LANCETS,ULT 2015-0 Yes Univer s RA THIN 8-28 ity of MISC 00:00: [place] 00 [facility] LANCETS,ULT 2015-0 Yes Univer s RA THIN 8-28 ity of MISC 00:00: [place] 00 [facility] Branch LANCETS,ULT 2015-0 Yes Univer s RA THIN 8-28 ity of MISC 00:00: [place] 00 [facility] LANCETS,ULT 2015-0 Yes Univer s RA THIN 8-28 ity of MISC 00:00: [place] 00 [facility] Branch LANCETS,ULT 2015-0 Yes Univer s RA THIN 8-28 ity of MISC 00:00: [place] 00 [facility] Branch LANCETS,ULT 2015-0 Yes Univer s RA THIN 8-28 ity of MISC 00:00: [place] 00 [facility] Branch LANCETS,ULT 2015-0 Yes Univer s RA THIN 8-28 ity of MISC 00:00: [place] 00 [facility] Branch LANCETS,ULT 2015-0 Yes Univer s RA THIN 8-28 ity of MISC 00:00: [place] 00 [facility] Branch LANCETS,ULT 2015-0 Yes Univer s RA THIN 8-28 ity of MISC 00:00: [place] [facility] LANCETS,ULT 2015-0 Yes Univer s RA THIN 8-28 ity of MISC 00:00: [place] [facility] LANCETS,ULT 2015-0 Yes Univer s RA THIN 8-28 ity of MISC 00:00: [place] [facility] LANCETS,ULT 2015-0 Yes Univer s RA THIN 8-28 ity of MISC 00:00: [place] [facility] LANCETS,ULT 2015-0 Yes Univer s RA THIN 8-28 ity of MISC 00:00: [place] [facility] LANCETS,ULT 2015-0 Yes Univer s RA THIN 8-28 ity of MISC 00:00: [place] 00 Medical Branch Immunizations Ordered Filled Immunization Date Status Comments Sour e Immunization Name Name SARS-COV-2 COVID-19 2021-02-25 Completed Unive rsity of MODERNA VACCINE 00:00:00 [facility] SARS-COV-2 COVID-19 2021-02-25 Completed Unive rsity of MODERNA VACCINE 00:00:00 [facility] SARS-COV-2 COVID-19 2021-02-25 Completed Unive rsity of MODERNA VACCINE 00:00:00 [facility] SARS-COV-2 COVID-19 2021-02-25 Completed Unive rsity of MODERNA VACCINE 00:00:00 [facility] SARS-COV-2 COVID-19 2021-01-28 Completed Unive rsity of MODERNA VACCINE 00:00:00 [facility] SARS-COV-2 COVID-19 2021-01-28 Completed Unive rsity of MODERNA VACCINE 00:00:00 [facility] SARS-COV-2 COVID-19 2021-01-28 Completed Unive rsity of MODERNA VACCINE 00:00:00 [facility] SARS-COV-2 COVID-19 2021-01-28 Completed Unive rsity of MODERNA VACCINE 00:00:00 [facility] Vital Signs Vital Name Observation Time Observation Value Comments Source Systolic blood 2021-04-09 18:25:00 139 mm[Hg] Univer sity of pressure [place] [facility] Diastolic blood 2021-04-09 18:25:00 80 mm[Hg] Unive rsity of pressure [place] [facility] Heart rate 2021-04-09 18:25:00 68 /min [facility] [place] [facility] Body height 2021-04-09 18:25:00 177.8 cm [facility] [place] [facility] Body weight 2021-04-09 18:25:00 113.399 kg [facility] [place] [facility] BMI 2021-04-09 18:25:00 35.87 kg/m2 [facility] [place] [facility] Systolic blood 2020-05-08 20:35:00 106 mm[Hg] Univer sity of pressure [place] [facility] Diastolic blood 2020-05-08 20:35:00 68 mm[Hg] Unive rsity of pressure [place] [facility] Respiratory rate 2020-05-08 20:35:00 18 /min Univ ersity of [place] [facility] Body height 2020-05-08 20:35:00 177.8 cm [facility] [place] [facility] Body weight 2020-05-08 20:35:00 113.399 kg [facility] [place] [facility] BMI 2020-05-08 20:35:00 35.87 kg/m2 [facility] [place] [facility] Systolic blood 2020-05-08 20:35:00 106 mm[Hg] Univer sity of pressure [place] [facility] Diastolic blood 2020-05-08 20:35:00 68 mm[Hg] Unive rsity of pressure [place] [facility] Respiratory rate 2020-05-08 20:35:00 18 /min Univ ersity of [place] [facility] Body height 2020-05-08 20:35:00 177.8 cm [facility] [place] [facility] Body weight 2020-05-08 20:35:00 113.399 kg [facility] [place] [facility] BMI 2020-05-08 20:35:00 35.87 kg/m2 [facility] [place] [facility] Systolic blood 2020-02-09 15:00:00 132 mm[Hg] Univer sity of pressure [place] [facility] Diastolic blood 2020-02-09 15:00:00 81 mm[Hg] Unive rsity of pressure [place] [facility] Heart rate 2020-02-09 15:00:00 66 /min [facility] [place] [facility] Body height 2020-02-09 14:57:00 177.8 cm [facility] [place] [facility] Body weight 2020-02-09 14:57:00 113.399 kg [facility] [place] [facility] BMI 2020-02-09 14:57:00 35.87 kg/m2 [facility] [place] [facility] Systolic blood 2020-01-17 22:06:00 136 mm[Hg] Univer sity of pressure [place] [facility] Diastolic blood 2020-01-17 22:06:00 83 mm[Hg] Unive rsity of pressure [place] [facility] Body weight 2019-08-06 18:57:00 113.399 kg [facility] [place] [facility] BMI 2019-08-06 18:57:00 35.87 kg/m2 [facility] [place] [facility] Systolic blood 2019-07-29 15:42:00 135 mm[Hg] Univer sity of pressure [place] [facility] Diastolic blood 2019-07-29 15:42:00 83 mm[Hg] Unive rsity of pressure [place] [facility] Heart rate 2019-07-29 15:42:00 80 /min [facility] [place] [facility] Body height 2019-07-29 15:42:00 177.8 cm [facility] [place] [facility] Body weight 2019-07-29 15:42:00 113.399 kg [facility] [place] [facility] BMI 2019-07-29 15:42:00 35.87 kg/m2 [facility] [place] [facility] Procedures Procedure Date / Time Performed Performing Clinician Sourc e XR HIPS 2 VW LEFT 2021-04-09 18:26:52 Zeeshan Castillo [facility] REFERRAL- 2020-05-03 05:01:00 Doctor Unassigned, No [facility] [place] REQUEST/RESPONSE Name Medical Branch HOME HEALTH - OTHER 2020-03-09 05:01:00 Doctor Unassigned, No [facility] [place] Name Medical Branch REFERRAL- 2019-11-30 06:01:00 Doctor Unassigned, No [facility] [place] REQUEST/RESPONSE Name Medical Branch XR CHEST 1 VW 2019-08-20 22:42:24 Grabiel Razo [facility] MEDICAL 2019-07-29 05:01:00 Doctor Unassigned, No [facility] [place] RELEASE/CLEARANCE Name Medical Branch FORMS Encounters Start End Encounter Admission Attending Care Care Encounter Source Date/Time Date/Time Type Type Clinicians Facility Department ID 2021-10-05 2021-10-05 ambulatory [facility] [id number] [facility] 2021-10-03 2021-10-03 ambulatory [facility] [id number] [facility] 2021-09-26 2021-09-26 Outpatient [facility] [id number] [facility] 2021-09-20 2021-09-20 Outpatient [facility] [id number] [facility] 2021-09-20 2021-09-20 Outpatient [facility] [id number] [facility] 2021-06-20 2021-06-20 Outpatient [facility] [id number] [facility] 2021-05-15 2021-05-15 Outpatient [facility] [id number] [facility] 2021-04-12 2021-04-12 Outpatient [facility] [id number] [facility] 2021-04-09 2021-04-09 [facility] [id number] Univers 13:26:51 23:59:00 Encounter [facility] [id number] ity of Surgical [id number] [place] as Specialti [id number] In dical 809 [facility] 2021-04-09 2021-04-09 Office [facility] [id number] Univers 13:22:36 14:21:54 Visit [facility] [id number] it y of Surgical [id number] [place] as Specialti [id number] Me dical es 198 [facility] 2021-04-09 2021-04-09 Outpatient Jagdish CASTILLO [facility] [id number] Univers 13:30:00 13:30:00 ZEESHAN ity [facility] 2021-02-27 2021-02-27 Outpatient [facility] [id number] [facility] 2021-02-25 2021-02-25 Outpatient [facility] [id number] Univers 13:00:00 13:00:00 ity [facility] 2021-01-28 2021-01-28 Outpatient Jagdish HERNANDEZ [facility] [id number] Univers 13:15:00 13:15:00 KELLEN [facility] 2020-05-08 2020-05-08 [facility] [id number] 15:31:11 15:46:11 Visit [facility] [id number] Surgical [id number] Specialti [id number] es [address] [place] [address] 2020-05-08 2020-05-08 [facility] [id number] Univers 15:31:11 15:46:11 Visit [facility] [id number] it y of Surgical [id number] [place] as Specialti [id number] In dical es 198 [facility] 2020-05-08 2020-05-08 [id number] Univers 15:30:00 [facility]:30:[facility] 2020-[facility]-08 [facility] [id number] Univers 15:30:00 15:30:00 [facility] 2020-05-03 2020-05-03 Orders Doctor LLAMAS [id number] Univers 00:00:00 00:00:00 Only Unassigned, ADELINA [id number] ity of [place] [facility] [id number] [place] as [id number] [address] 2020-05-03 2020-05-03 Orders Doctor MURIEL [id number] 00:00:00 00:00:00 Only Unassigned, ADELINA [id number] [place] [facility] 4.2.7.2.686 [id number] 2020-03-09 2020-03-09 Orders Doctor MURIEL 1.2.840.114 [id number] Univers 00:00:00 00:00:00 Only Unassigned, ADELINA 350.1.13.10 ity of [place] [facility] 4.2.7.2.686 Cade as [id number] [address] 2020-02-09 2020-02-09 [facility] 1.2.840.114 [id number] Univers 09:50:20 10:05:20 Visit [facility] [id number] it y of Surgical 4.2.7.2.686 Cade as Specialti [phone] In dical es 198 [facility] 2020-02-09 2020-02-09 [id number] Univers 10:00:00 10:00:00 ZEESHAN [id number] [facility] 2020-02-09 2020-02-09 [facility]patient [facility] [id number] Univers 10:00:00 10:00:00 [facility] 2020-01-17 2020-01-17 Office Jonathan [facility] 1.2.840.114 [id number] Univers 15:52:56 16:07:56 Visit [facility] [id number] it y of Surgical 4.2.7.2.686 Cade as Specialti [phone] In dical es 198 [facility] 2020-01-12 2020-01-12 Telephone Danni [facility] 1.2.840.114 [id number] Univers 00:00:00 00:00:00 [facility] [id number] it y of Surgical 4.2.7.2.686 Cade as Specialti [phone] In dical es 198 [facility] 2019-11-30 2019-11-30 Orders Doctor LLAMAS 1.2.840.114 [id number] Univers 00:00:00 00:00:00 Only Unassigned, ADELINA 350.1.13.10 ity of [place] [facility] 4.2.7.2.686 Cade as [phone] [facility] [address] 2019-08-30 2019-08-30 Prep For Danni [facility] 1.2.840.114 [id number] Univers 00:00:00 00:00:00 Surgery Grabiel Whitley 350.1.13.10 it y of Surgical 4.2.7.2.686 Cade as Specialti [phone] In dical es 198 [facility] 2019-08-20 2019-08-20 [facility] Grabiel Razo [facility] 1.2.840 .114 [id number] Univers 17:23:22 23:59:00 Encounter Station, [facility] Heart Mera 350.1.[address] 4.2.7.2.686 [facility] [phone] [facility] [address] 2019-08-20 2019-08-20 Supply Chain Assistant 1, [facility] Lab [facility] 1.2.840.114 [id number] Univers 17:20:02 17:35:02 Visit Grabiel Razo 350.1.13.[address] 4.2.7.2.686 [facility] [phone] [facility] [address] 2019-08-20 2019-08-20 [facility] Danni [facility] 1.2.840.114 [id number] Univers 17:22:22 17:22:22 Encounter Grabiel [place] 350.1.13.[address] 4.2.7.2.686 [facility] [phone] [facility] [address] 2019-08-18 2019-08-18 Telephone Danni [facility] 1.2.840.114 [id number] Univers 00:00:00 00:00:00 Grabiel Whitley 350.1.13.10 it y of Surgical 4.2.7.2.686 Cade as Specialti [phone] In dical es 198 [facility] 2019-08-09 2019-08-09 Telephone Danni [facility] 1.2.840.114 [id number] Univers 00:00:00 00:00:00 Grabiel Blanco [facility] 350.1.13.10 it y of Surgical 4.2.7.2.686 Cade as Specialti [phone] In dical es 198 [facility] 2019-07-29 2019-07-29 [facility] 1.2.840.114 [id number] Univers 10:35:45 11:00:11 Visit Zeeshan Mesa [facility] 350.1.13.10 it y of Surgical 4.2.7.2.686 Cade as Specialti [phone] In dical es 198 [facility] 2019-07-29 2019-07-29 Orders Doctor MURIEL 1.2.840.114 [id number] Univers 00:00:00 00:00:00 Only Unassigned, ADELINA 350.1.13.10 ity of [place] [facility] 4.2.7.2.686 Cade as [id number] [address] 2019-07-29 2019-07-29 Letter [facility] [id number] Univers 00:00:00 00:00:00 (Out) Grabiel Blanco [facility] 350.1.13.10 it y of Surgical 4.2.7.2.686 [place] as Specialti [phone] In dical es 198 [facility] 2019-07-26 2019-07-26 [facility]phone [facility] [id number] Univers 00:00:00 00:00:00 Zeeshan Mesa [facility] [id number] it y of Surgical 4.2.7.2.686 [place]ade as Specialti [phone] In dical es 198 [facility] Results Test Description Test Time Test Comments Results Result Sour e Comments CHEST 1 VIEW 2019-08-02 No acute [facility] 0 cardiopulmonary [place] [facility] 22:59:10 abnormality I, Gian Forbes?Amandeep lund MD., have reviewed this study and agree withthe above report.XR CHEST 1 VW HISTORY: 68 years-old; Male; surgery COMPARISON: None FINDINGS: Lungs: Bibasilar streaky opacities are present subsegmental atelectasis.Otherwise the lungs are clear with no focal consolidation. There is nopleural effusion or pneumothorax. The cardiomediastinal silhouette is normal. The osseous structures are unremarkable. [facility], Radiant Results Inft User - 08/20/2019 5:59 PM CDTXR CHEST 1 VWHISTORY: 68 years-old; Male; surgery COMPARISON: NoneFINDINGS:Lungs: Bibasilar streaky opacities are present subsegmental atelectasis.Otherwise the lungs are clear with no focal consolidation. There is nopleural effusion or pneumothorax.The cardiomediastinal silhouette is normal.The osseous structures are unremarkable.RUSS ONNisha acute cardiopulmonary abnormalityIAndrei MD., have reviewed this study and agree withthe above report.
[2021-10-15] MEDS ORDERED: HYDROCODONE/APAP 5/325 MG TAB ONE (15:39)
[2021-10-15] MEDS ORDERED: KETOROLAC 30 MG/ML INJ ONE (15:40)
--- NOTE | 2021-10-15 16:16 | RAD REPORT ---
EXAM DESCRIPTION: CT - Thorax Wo Con - 10/15/2021 3:53 pm CLINICAL HISTORY: PAIN, fall with persistent left-sided chest pain COMPARISON: Thoracic Spine W/o Cont dated 12/28/2020 TECHNIQUE: Axial 5 mm thick images of the chest were obtained without IV contrast. All CT scans are performed using dose optimization technique as appropriate and may include automated exposure control or mA/KV adjustment according to patient size. FINDINGS: No pulmonary contusion or acute lung parenchymal process. No mass, infiltrate or acute sheila g finding. No pleural thickening or pleural effusion. No pneumothorax. No abnormal mediastinal or hilar masses or lymphadenopathy seen. No gross aortic or pulmonary artery finding suspected. No cardiomegaly or pericardial effusion. Partially visualized spleen shows no hakeem picious finding. No fluid in the left upper quadrant of the abdomen. No chest wall mass or abnormal axillary lymphadenopathy. No rib fractures identified. No dislocation of the humeral head. Prominent AC joint degenerative moreno ges are present without AC joint separation. Scapula is intact. Delete selection No hematoma in the soft tissues. The upper left chest skeletal musculature all appears more prominent than on the right. His is unknown if the patient has any baseline asymmetry of the upper chest muscu lature. No measurable intra muscular hematoma seen. Muscle edema from posttraumatic strain would be p ossible given the trauma history in this general region. IMPRESSION: No rib fracture, pulmonary contusion or acute intrathoracic injury identifiable. Patient has prominence of the left-side pectoral muscles, left shoulder periarticular muscles and upp er left musculature in general relative to the right without a discrete intra muscle mass or hematoma seen. Baseline for the patient is unknown. This could be edema within multiple muscles from trauma.
--- NOTE | 2021-10-15 16:55 | ER ---
Nurse's Notes [facility] Name: Dakotah Shah Age: 70 yrs Sex: Male : 1950 Arrival Date: 10/15/2021 Time: 14:46 Bed 30 Private MD: Diagnosis: Strain of muscle and tendon of front wall of thorax;Contusion of front wall of thorax Presentation: 10/15 14:49 Chief complaint: Patient states: had a fall last weekend. tripped and fell off the 2 sidewalk. pain in the left pectoral area when deep breath and when sneezing or coughing. Dr. garcia sent here to get imaging. Coronavirus screen: Vaccine status: Patient reports receiving the 2nd dose of the covid vaccine. At this time, the client does not indicate any symptoms associated with coronavirus-19. Ebola Screen: Patient negative for fever greater than or equal to 101.5 degrees Fahrenheit, and additional compatible Ebola Virus Disease symptoms Patient denies exposure to infectious person. Patient denies travel to an Ebola-affected area in the 21 days before illness onset. Initial Sepsis Screen: Does the patient meet any 2 criteria? No. Patient's initial sepsis screen is negative. Does the patient have a suspected source of infection? No. Patient's initial sepsis screen is negative. Risk Assessment: Do you want to hurt yourself or someone else? Patient reports no desire to harm self or others. Onset of symptoms was October 06, 2021. 14:49 Method Of Arrival: Ambulatory tw2 14:49 Acuity: CHRISTOPHER 3 tw2 Triage Assessment: 14:53 General: Appears in no apparent distress. Behavior is calm, cooperative, appropriate tw2 for age. Pain: Complains of pain in anterior aspect of left upper chest. Historical: - Allergies: 14:53 No Known Allergies; tw2 - Home Meds: 14:53 losartan oral [Active]; gabapentin 300 mg oral cap 1 cap daily [Active]; allopurinol tw2 300 mg Oral tab 1 tab once daily [Active]; sotalol 80 mg Oral tab 1 tab [Active]; duloxetine 60 mg oral CDRS 1 cap once daily [Active]; tramadol 50 mg Oral tab [Active]; 15:01 metformin 1,000 mg Oral tab 1 tab once a day [Active]; levothyroxine 50 mcg cap 1 cap tw2 once daily [Active]; Symbicort inhalation [Active]; mometasone nasal [Active]; 15:05 glimepiride 4 mg Oral tab 1 tab once daily [Active]; tw2 - PMHx: 14:53 chronic back pain; Diabetes - NIDDM; Gout; Hypertension; seasonal allergies; Thyroid tw2 problem; - Immunization history:: Client reports receiving the 2nd dose of the Covid vaccine, Flu vaccine is up to date. - Social history:: Smoking status: Patient denies any tobacco usage or history of. Screenin:59 Abuse screen: Denies threats or abuse. Denies injuries from another. Nutritional tw2 screening: No deficits noted. Tuberculosis screening: No symptoms or risk factors identified. Fall Risk Fall in past 12 months (25 points). Assessment: 15:17 General: Appears in no apparent distress. obese, well groomed, Behavior is calm, jh5 cooperative, appropriate for age. Pain: Complains of pain in left clavicle and anterior aspect of left upper chest Pain does not radiate. Pain began 2-3 days ago. Neuro: No deficits noted. Level of Consciousness is awake, alert, obeys commands, Oriented to person, place, time, situation, Appropriate for age Speech is normal. Cardiovascular: Reports chest pain, Capillary refill < 3 seconds Patient's skin is warm and dry. Respiratory: No deficits noted. Airway is patent Trachea midline Respiratory effort is even, unlabored, Respiratory pattern is regular, symmetrical. Vital Signs: 14:49 BP 132 / 65; Pulse 58; Resp 17; Temp 97.9; Pulse Ox 100% ; Weight 113.4 kg; Height 5 tw2 ft. 9 in. (175.26 cm); Pain 10/10; 14:49 Body Mass Index 36.92 (113.40 kg, 175.26 cm) tw2 ED Course: 14:46 Patient arrived in ED. mr 14:53 Triage completed. tw2 14:59 Patient has correct armband on for positive identification. Call light in reach. Side tw2 rails up X 1. 15:01 Arm band placed on right wrist. tw2 15:10 Flako Austin NP is PHCP. pm1 15:10 Ward Vidal MD is Attending Physician. pm1 15:17 Nayeli Nichols RN is Primary Nurse. jh5 15:53 CT Chest Wo Con In Process Unspecified. EDMS Administered Medications: 15:45 Drug: HYDROcodone-acetaminophen 5 mg-325 mg 1 tabs Route: PO; 5 15:45 Drug: Ketorolac 15 mg Route: IM; Site: left deltoid; 5 Outcome: 16:54 Discharge ordered by . pm1 17:10 Patient left the ED. 5 Signatures: Dispatcher [employer] EDMS Cathy Bradley GeovannaFlako, EQUIPMENT APPLICATION SPECIALIST EQUIPMENT APPLICATION SPECIALIST pm1 Lorelei Stevens RN RN 2 Nayeli Nichols RN RN 5
--- NOTE | 2021-10-15 16:55 | EDPHYS ---
Physician Documentation [facility] Name: Dakotah Shah Age: 70 yrs Sex: Male : 1950 Arrival Date: 10/15/2021 Time: 14:46 Bed 30 Private MD: ED Physician Ward Vidal HPI: 10/15 15:46 This 70 yrs old Male presents to ER via Ambulatory with complaints of Fall pm1 injury. 15:46 Details of fall: The patient fell from an upright position, while walking. Onset: The pm1 symptoms/episode began/occurred 1 week(s) ago. Associated injuries: The patient sustained injury to the chest, specifically the anterior aspect of left upper chest, pain with deep breathing, coughing and laughing, left elbow, pain initially that has completely resolved. Severity of symptoms: in the emergency department the symptoms are unchanged, to left chest. Resolved left elbow. The patient has been recently seen by a physician: the patient's primary care provider, Dr. Leigh and sent to the ER for imaging. Patient fell on 10/05 when he misstep going down and up the curb. Patient fell on his left side and elbow with his left arm out stretched. Patient's left elbow pain completely resolved but his left upper chest pain has continued and it hurts with deep breathing, coughing, laughing and moving his left shoulder. No head injury, LOC, neck pain, or headache. Historical: - Allergies: 14:53 No Known Allergies; tw2 - Home Meds: 14:53 losartan oral [Active]; gabapentin 300 mg oral cap 1 cap daily [Active]; allopurinol tw2 300 mg Oral tab 1 tab once daily [Active]; sotalol 80 mg Oral tab 1 tab [Active]; duloxetine 60 mg oral CDRS 1 cap once daily [Active]; tramadol 50 mg Oral tab [Active]; 15:01 metformin 1,000 mg Oral tab 1 tab once a day [Active]; levothyroxine 50 mcg cap 1 cap tw2 once daily [Active]; Symbicort inhalation [Active]; mometasone nasal [Active]; 15:05 glimepiride 4 mg Oral tab 1 tab once daily [Active]; tw2 - PMHx: 14:53 chronic back pain; Diabetes - NIDDM; Gout; Hypertension; seasonal allergies; Thyroid tw2 problem; - Immunization history:: Client reports receiving the 2nd dose of the Covid vaccine, Flu vaccine is up to date. - Social history:: Smoking status: Patient denies any tobacco usage or history of. ROS: 15:46 Constitutional: Negative for fever, chills, and weight loss, Neck: Negative for injury, pm1 pain, and swelling, Cardiovascular: Negative for chest pain, palpitations, and edema, Respiratory: Negative for shortness of breath, cough, wheezing, and pleuritic chest pain, Abdomen/GI: Negative for abdominal pain, nausea, vomiting, diarrhea, and constipation, Back: Negative for injury and pain, MS/Extremity: Negative for injury and deformity, Skin: Negative for injury, rash, and discoloration, Neuro: Negative for headache, weakness, numbness, tingling, and seizure. 15:46 All other systems are negative. Exam: 15:15 ECG was reviewed by the Attending Physician. rn 15:46 Constitutional: This is a well developed, well nourished patient who is awake, alert, pm1 and in no acute distress. Head/Face: Normocephalic, atraumatic. 15:46 Skin: Warm, dry with normal turgor. Normal color with no rashes, no lesions, and no evidence of cellulitis. MS/ Extremity: Pulses equal, no cyanosis. Neurovascular intact. Full, normal range of motion. 15:46 Eyes: Exam is negative for acute changes, Extraocular movements: intact throughout, Sclera: no acute changes, icterus, is not appreciated. 15:46 ENT: Mouth: no acute changes, Lips: normal, moist, Oral mucosa: normal, pink and intact, moist. 15:46 Neck: Exam negative for acute changes, External neck: no acute changes, C-spine: vertebral tenderness, is not appreciated. 15:46 Chest/axilla: Inspection: normal, Palpation: crepitus, is not appreciated, focal point tenderness present to left upper chest that is reproducible with movement of left arm and shoulder. 15:46 Cardiovascular: Exam negative for acute changes, Rate: normal, Rhythm: regular, Pulses: no pulse deficits are appreciated, Heart sounds: normal, normal S1and S2. 15:46 Respiratory: Exam negative for acute changes, respiratory distress, shortness of breath, Breath sounds: are clear throughout. 15:46 Abdomen/GI: Inspection: abdomen appears normal, Palpation: abdomen is soft and non-tender, in all quadrants. 15:46 Back: Exam negative for acute changes, pain, is absent, vertebral tenderness, is not appreciated, muscle spasm, is not present. 15:46 Neuro: Exam negative for acute changes, Orientation: is normal, Mentation: is normal, Motor: is normal, moves all fours. Vital Signs: 14:49 BP 132 / 65; Pulse 58; Resp 17; Temp 97.9; Pulse Ox 100% ; Weight 113.4 kg; Height 5 tw2 ft. 9 in. (175.26 cm); Pain 10/10; 14:49 Body Mass Index 36.92 (113.40 kg, 175.26 cm) tw2 MDM: 15:12 Patient medically screened. pm1 16:51 Data reviewed: vital signs. Data interpreted: Pulse oximetry: on room air is 100 %. pm1 Interpretation: normal. Counseling: I had a detailed discussion with the patient and/or guardian regarding: the historical points, exam findings, and any diagnostic results supporting the discharge/admit diagnosis, radiology results, the need for outpatient follow up, to return to the emergency department if symptoms worsen or persist or if there are any questions or concerns that arise at home. 16:57 ED course: PMPAware reviewed. Patient reports tramadol is not effective for the pain. pm1 Will discharge home with tylenol with codeine. 10/15 15:26 Order name: CT Chest Wo Con; Complete Time: 16:23 pm1 EC:15 Rate is 57 beats/min. Rhythm is regular. QRS [place] is Normal. IN interval is normal. QRS rn interval is normal. QT interval is normal. No Q waves. T waves are Normal. No ST changes noted. Clinical impression: Sinus bradycardia. Interpreted by me. Reviewed by me. Administered Medications: 15:45 Drug: HYDROcodone-acetaminophen 5 mg-325 mg 1 tabs Route: PO; [facility] 15:45 Drug: Ketorolac 15 mg Route: IM; Site: left deltoid; [facility] Disposition: 17:15 Co-signature as Attending Physician, Ward Vidal MD I agree with the assessment and rn plan of care. Attestation: The patient's history, exam findings, diagnostics, and a summary of any interventions or procedures was reviewed in detail with Flako Austin NP. Disposition Summary: 11/15/21 16:54 Discharge Ordered Location: Home pm1 Problem: new pm1 Symptoms: have improved pm1 Condition: Stable pm1 Diagnosis - Strain of muscle and tendon of front wall of thorax pm1 - Contusion of front wall of thorax pm1 Followup: pm1 - With: Emergency Department - When: As needed - Reason: Worsening of condition Followup: pm1 - With: Private Physician - When: 2 - 3 days - Reason: Recheck today's complaints, Continuance of care, Re-evaluation by your physician Discharge Instructions: - Discharge Summary Sheet pm1 - Contusion pm1 - Muscle Strain pm1 Forms: - Medication Reconciliation Form pm1 - Thank You Letter pm1 - Antibiotic Education pm1 - Prescription Opioid Use pm1 Prescriptions: - acetaminophen-codeine 300-15 mg Oral tablet - take 2 tablet by ORAL route every 6 hours As needed as needed; 20 tablet; pm1 Refills: 0, Product Selection Permitted Signatures: Dispatcher [employer] EDMS Ward Vidal MD MD rn Marinas, Patrick, NP ASTHMA EDUCATOR pm1 Lorelei Stevens, RN RN tw2 Nayeli Nichols RN RN jh5
[2021-10-15 17:22] VITALS: BP 132/65; TEMP 97.9; O2SAT 100
--- NOTE | 2021-10-16 16:54 | EKG ---
Test Date: 2021-10-15 Test Time: 15:12:19 Mold Designer: MEASUREMENT RESULTS: Intervals: Rate: 57 WV: 150 QRSD: 94 QT: 414 QTc: 402 [place]: P: 65 WV: 150 QRS: 42 T: 29 INTERPRETIVE STATEMENTS: Sinus bradycardia Otherwise normal ECG Compared to ECG 01/07/2013 02:44:08 No significant changes Electronically Signed On 10-16-21 16:51:17 CEMENTING MACHINE OPERATOR by Masoud Guerin
== END 2021-10-15 17:10 | disposition home or self-care (01) ==
LOC: ER 14:42
DX: S29.011A Strain of muscle and tendon of front wall of thorax, initial encounter (principal); W18.30XA Fall on same level, unspecified, initial encounter; Y93.01 Activity, walking, marching and hiking; I10 Essential (primary) hypertension; E11.9 Type 2 diabetes mellitus without complications; E07.9 Disorder of thyroid, unspecified
CPT/HCPCS: 71250; 93005; 96372; 99283

== ENCOUNTER → 2024-02-25 | Emergency (ER) | payer OTHER ==
[~2024-02-25] MED LIST: TDAP (DIPHTH,PERTUSS(ACELL),TET VAC) 0.5 ML VIAL IMVAC ONE
--- NOTE | 2024-02-25 15:10 | RAD REPORT ---
EXAM DESCRIPTION: RAD - Foot Left 3 View - 02/25/2024 2:10 pm CLINICAL HISTORY: Left Foot pain FINDINGS: No fracture or dislocation is seen.
--- NOTE | 2024-02-25 15:14 | EDPHYS ---
Physician Documentation [facility] Name: Dakotah Shah Age: 73 yrs Sex: Male : 1950 Arrival Date: 02/25/2024 Time: 13:27 Bed 10 Private MD: Hazel Leighh ED Physician Demond York HPI: 02/24 13:50 This 73 yrs old Male presents to ER via Ambulatory with complaints of Puncture Wound To kb Foot. 13:50 Pt is a 73 year old male who presents for injury to left second digit that occurred kb last night. 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 States he nail went through his flipflop and cut up the bottom of his second toe on left foot. noticed bruising this morning and wanted pt to come get it checked out. . Historical: - Allergies: 13:45 Codeine; hb - Home Meds: 14:31 allopurinol 300 mg Oral tab 1 tab once daily [Active]; duloxetine 60 mg Oral CDRS 1 cap hb once daily [Active]; gabapentin 300 mg Oral cap 1 cap daily [Active]; glimepiride 4 mg Oral tab 1 tab once daily [Active]; levothyroxine 50 mcg cap 1 cap once daily [Active]; losartan Oral [Active]; metformin 1 Oral tab 1 tab once a day [Active]; mometasone nasal [Active]; sotalol 80 mg Oral tab 1 tab [Active]; Symbicort inhalation [Active]; tramadol 50 mg Oral tab [Active]; - PMHx: 13:45 Gout; Thyroid problem; Diabetes - NIDDM; Hypertension; seasonal allergies; chronic back hb pain; - Immunization history:: Adult Immunizations up to date. - Social history:: Smoking status: Patient denies any tobacco usage or history of. ROS: 14:06 Constitutional: As per HPI kb Exam: 14:06 Constitutional: This is a well developed, well nourished patient who is awake, alert, kb and in no acute distress. Head/Face: Normocephalic, atraumatic. ENT: Moist Mucous membranes Cardiovascular: Regular rate Respiratory: Respirations even and unlabored. No increased work of breathing. Talking in full sentences Neuro: Awake and alert, GCS 15, oriented to person, place, time, and situation. Moves all extremities. Normal gait. 14:06 Skin: injury, abrasion(s), very small abrasion noted, of the plantar aspect of left second toe, bruising to left second toe, Vital Signs: 13:43 BP 148 / 72; Pulse 63; Resp 18; Pulse Ox 98% on R/A; Weight 113.4 kg; Height 5 ft. 9 hb in. ; Pain 0/10; 15:30 BP 134 / 72; Pulse 70; Resp 16; Temp 98.1(O); Pulse Ox 98% on R/A; me1 13:43 Body Mass Index 36.92 (113.40 kg, 175.26 cm) hb 13:43 Pain Scale: Adult hb MDM: 13:34 Patient medically screened. kb 14:07 Differential diagnosis: fracture, laceration, abrasion. Data reviewed: vital signs, kb nurses notes. 15:12 Counseling: I had a detailed discussion with the patient and/or guardian regarding the kb historical points, exam findings, and any diagnostic results supporting the discharge/admit diagnosis, radiology results, the need for outpatient follow up, a family practitioner, to return to the emergency department if symptoms worsen or persist or if there are any questions or concerns that arise at home. 02/24 13:48 Order name: Foot Left 3 View XRAY; Complete Time: 15:11 kb Administered Medications: 15:05 Drug: Boostrix Tdap IM 0.5 ml IM once; as a single dose {Note: LOT: [id number] EXP: me1 12/13/25.} Route: IM; Site: left deltoid; 15:12 Follow up: Response: No adverse reaction me1 Disposition Summary: 02/25/24 15:14 Discharge Ordered Notes: Location: Home kb Condition: Stable kb Diagnosis - Abrasion of second digit of left foot kb Followup: kb - With: Emergency Department - When: As needed - Reason: Worsening of condition Followup: kb - With: Private Physician - When: 2 - 3 days - Reason: Recheck today's complaints, Continuance of care, Re-evaluation by your physician Discharge Instructions: - Discharge Summary Sheet kb - Abrasion, Socr-ma-Xitz kb Forms: - Medication Reconciliation Form kb - Thank You Letter kb - Antibiotic Education kb - Prescription Opioid Use kb - Patient Portal Instructions kb - Leadership Thank You Letter kb Prescriptions: - Cephalexin 500 mg Oral Capsule - take 1 capsule ORAL route every 8 hours for 10 days; 30 capsule; Refills: 0, kb Product Selection Permitted Signatures: Dispatcher [employer] Veronica Priest FNP-C FNP-Kathleen Zamora RN RN Bernadette Rebolledo RN RN me1 Corrections: (The following items were deleted from the chart) 14:06 13:50 left second digits. kb kb
--- NOTE | 2024-02-25 15:14 | ER ---
Nurse's Notes [facility] Name: Dakotah Shah Age: 73 yrs Sex: Male : 1950 Arrival Date: 02/25/2024 Time: 13:27 Bed 10 Private MD: Yasmany Leigh Diagnosis: Abrasion of second digit of left foot Presentation: 02/24 13:43 Chief complaint: Stepped on furniture tack yesterday, reports puncture wound to left hb second toe. Coronavirus screen: At this time, the client does not indicate any symptoms associated with coronavirus-19. Ebola Screen: No symptoms or risks identified at this time. Initial Sepsis Screen: Does the patient meet any 2 criteria? No. Patient's initial sepsis screen is negative. Does the patient have a suspected source of infection? No. Patient's initial sepsis screen is negative. Risk Assessment: Do you want to hurt yourself or someone else? Patient reports no desire to harm self or others. Onset of symptoms was February 26, 2024. 13:43 Method Of Arrival: Ambulatory hb 13:43 Acuity: CHRISTOPHER 4 hb Triage Assessment: 13:46 General: Appears in no apparent distress. Behavior is calm, cooperative. Pain: Denies hb pain. Neuro: Level of Consciousness is awake, alert, obeys commands, Oriented to person, place, time, situation. Cardiovascular: Patient's skin is warm and dry. Respiratory: Respiratory effort is even, unlabored, Respiratory pattern is regular, symmetrical. Derm: Wound noted plantar aspect of left second toe. Historical: - Allergies: 13:45 Codeine; hb - Home Meds: 14:31 allopurinol 300 mg Oral tab 1 tab once daily [Active]; duloxetine 60 mg Oral CDRS 1 cap hb once daily [Active]; gabapentin 300 mg Oral cap 1 cap daily [Active]; glimepiride 4 mg Oral tab 1 tab once daily [Active]; levothyroxine 50 mcg cap 1 cap once daily [Active]; losartan Oral [Active]; metformin 1 Oral tab 1 tab once a day [Active]; mometasone nasal [Active]; sotalol 80 mg Oral tab 1 tab [Active]; Symbicort inhalation [Active]; tramadol 50 mg Oral tab [Active]; - PMHx: 13:45 Gout; Thyroid problem; Diabetes - NIDDM; Hypertension; seasonal allergies; chronic back hb pain; - Immunization history:: Adult Immunizations up to date. - Social history:: Smoking status: Patient denies any tobacco usage or history of. Screenin:15 [facility] ED Fall Risk Assessment (Adult) History of falling in the last 3 months, me1 including since admission No falls in past 3 months (0 pts) Confusion or Disorientation No (0 pts) Intoxicated or Sedated No (0 pts) Impaired Gait No (0 pts) Mobility Assist Device Used No (0 pt) Altered Elimination No (0 pt) Score/Fall Risk Level 0 - 2 = Low Risk Maintained a safe environment, Provided non-skid footwear, Hourly rounding (assess needs \T\ fall precautionary measures) done. Abuse screen: Denies threats or abuse. Nutritional screening: No deficits noted. Tuberculosis screening: No symptoms or risk factors identified. Assessment: 15:13 General: Appears comfortable, well groomed, well developed, well nourished, Behavior is me1 calm, cooperative, appropriate for age, Reports stepped on furniture tack yesterday and it punctured his left second toe. Denies pain. Hx of neuropathy. Pain: Denies pain. Neuro: Level of Consciousness is awake, alert, obeys commands, Oriented to person, place, time, situation, Appropriate for age. Cardiovascular: Capillary refill < 3 seconds Patient's skin is warm and dry. Respiratory: Airway is patent Respiratory effort is even, unlabored, Respiratory pattern is regular, symmetrical. GI: No deficits noted. : No deficits noted. Derm: Wound noted left foot and plantar aspect of left second toe Wound is puncture wound. Musculoskeletal: No signs and/or symptoms reported regarding the musculoskeletal system. Injury Description: Puncture sustained to left foot and plantar aspect of left second toe. Vital Signs: 13:43 BP 148 / 72; Pulse 63; Resp 18; Pulse Ox 98% on R/A; Weight 113.4 kg; Height 5 ft. 9 hb in. ; Pain 0/10; 15:30 BP 134 / 72; Pulse 70; Resp 16; Temp 98.1(O); Pulse Ox 98% on R/A; me1 13:43 Body Mass Index 36.92 (113.40 kg, 175.26 cm) hb 13:43 Pain Scale: Adult hb ED Course: 13:32 Patient arrived in ED. rg4 13:32 Yasmany Leigh DO is Private Physician. rg4 13:34 Ver[facility] Math[facility]-C [facility]. kb 13:34 Demond York MD is Attending Physician. kb 13:45 Triage completed. hb 13:45 Arm band placed on. hb 14:11 Foot Left 3 View XRAY In Process Unspecified. EDMS 15:01 Bernadette Rebolledo, RN is Primary Nurse. me1 15:15 Patient has correct armband on for positive identification. Bed in low position. Call me1 light in reach. Provided Education on: POC. Verbalized understanding. . 15:15 No provider procedures requiring assistance completed. me1 15:15 Patient did not have IV access during this emergency room visit. me1 Administered Medications: 15:05 Drug: Boostrix Tdap IM 0.5 ml IM once; as a single dose {Note: LOT: [id number] EXP: me1 12/13/25.} Route: IM; Site: left deltoid; 15:12 Follow up: Response: No adverse reaction me1 Medication: 15:12 Vaccine Information Statement (VIS) provided today. Questions and/or concerns me1 addressed. VIS edition date: July 06, 2021. Outcome: 15:14 Discharge ordered by MD. kb 15:30 Discharged to home ambulatory, me1 15:30 Condition: stable 15:30 Discharge instructions given to patient, Instructed on discharge instructions, follow up and referral plans. medication usage, wound care, Demonstrated understanding of instructions, follow-up care, medications, wound care, Prescriptions given X 1, 15:30 Patient left the ED. me1 Signatures: Dispatcher [employer] EDMA Veronica Mathis FNP-C FNP-Kathleen Zamora RN RN Jordyn Sr rg4 Bernadette Rebolledo, JAREN RN me1 Corrections: (The following items were deleted from the chart) 13:45 13:43 BP 148 / 72; Pulse 40bpm; Resp 18bpm; Pulse Ox 98% RA; Pain 0/10, Adult; hb hb 13:46 13:43 Chief complaint: Stepped on furniture tack yesterday, reports wound to left first hb and second toes. hb 13:50 13:43 Chief complaint: Stepped on furniture tack yesterday, reports wound to left first hb and second toes. hb 13:50 13:43 BP 148 / 72; Pulse 40bpm; Resp 18bpm; Pulse Ox 98% RA; 113.4 kg; Height 5 ft. 9 hb in.; BMI: 36.9; Pain 0/10, Adult; hb 15:05 15:05 Boostrix Tdap IM 0.5 ml IM in left deltoid me1 me1
[2024-02-25 15:35] VITALS: O2SAT 98
[2024-02-25 16:06] VITALS: BP 134/72; TEMP 98.1
== END ==
LOC: ER 13:27
DX: S90.415A Abrasion, left lesser toe(s), initial encounter (principal); Z88.5 Allergy status to narcotic agent